=== PATIENT | male | born 1955 | race Caucasian/White ===

== ENCOUNTER 2017-04-30 22:51 | Inpatient (IN) | payer MEDICARE ==
[~2017-04-30 22:51] MED LIST: ASPI81TA82 PO; BENZ100 PO; CORE3.12 PO; GLIM4TAB PO; GLUCTAB PO; PLAV75TA OR; PRIN5TAB PO; ROSU40 PO
[2017-04-30 23:00] VITALS: BP 234/97; PULSE 101; RESP 20; TEMP 98; O2SAT 90
[2017-04-30 23:05] VITALS: PULSE 101; RESP 18; O2SAT 93
[2017-04-30] MEDS ORDERED: NITROGLYCERIN-D5W 50 MG/250 ML 250 ML IV PRN (23:15)
[2017-04-30] MEDS ORDERED: NITROGLYCERIN 0.4 MG SL 25 TABS/BTL SL ONE (23:15)
[2017-04-30] MEDS ORDERED: SODIUM CHLORIDE 0.9% FLUSH 10 ML FLUSH IVF PRN (23:15)
--- NOTE | 2017-04-30 23:20 | PD ---
HPI Chief Complaint: chest pain Time Seen by Provider: 23:06 Travel History International Travel<30 days: No Contact w/Intl Traveler<30days: No History of Present Illness HPI The patient is a 62 year old male who presents to the [facility] emergency department with a history of chest pain that began at approximate 9:30 PM. The patient reports that he was sitting down when it began. He had eaten approximately one hour prior to the onset. He denies having any indigestion currently, however 2 weeks ago he did have an episode of heartburn. The patient does report having a prior history of coronary artery disease with four- vessel bypass in 2005 and 3 stents placed since then, most recently 2 stents were placed in 2013. 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 He last had a stress test done approximately a year ago. He reports that the chest pain is in the center of his chest that is a pressure sensation. He reports that it makes him feel short of breath as he cannot take a deep breath because of the pressure. He reports the pain radiates into the anterior neck bilaterally. He denies having any nausea or vomiting. He denies having any diaphoresis. The patient arrives hypertensive. The patient reports that he has not taken his blood pressure medication today as he forgot. He reports that he did take his blood pressure medication yesterday. The patient's pain initially was a 9 out of 10 in severity and is now down to a 4 out of 10 in severity. In route to this facility by ambulance services, the patient received sublingual nitroglycerin 3 which is what he believes improved his pain level. The patient reports that he did take an adult aspirin prior to arrival. On review of systems otherwise, the patient denies having any recent fevers, cough, congestion, abdominal pain, vomiting, diarrhea, urinary symptoms, or neurologic symptoms. [facility] Past Medical History Narrative Medical The Patient's past medical history is significant for coronary artery disease status post four-vessel bypass in 2005 and 3 stents placed since then, 2 stents placed in 2013, history of hypertension, hyperlipidemia, acid reflux, diabetes mellitus. Hx Anticoagulant Therapy: Yes Arthritis: No Asthma: No Blood Disorders: No Heart Rhythm Problems: No Cancer: No Cardiovascular Problems: Yes (CAD, CABGX4, STENTS) High Cholesterol: Yes Chemotherapy: No Chest Pain: Yes Cirrhosis: No COPD: No Cerebrovascular Accident: No Diabetes: Yes Endocrine: Yes GERD: Yes Genitourinary: No Headaches: Yes Hepatitis: No Hiatal Hernia: No Hypertension: Yes Immune Disorder: No Musculoskeletal: Yes Neurologic: No Psychiatric: No Respiratory: No Myocardial Infarction: Yes Radiation Therapy: No Seizures: No Sickle Cell Disease: No Sleep Apnea: No Thyroid Disease: No Ulcer: No Past Surgical History Narrative Surgical The patient's past surgical history is significant for a hernia repair, coronary artery bypass grafting of 4 vessels in 2006. Abdominal Surgery: Yes (Hernia repair) AICD: No Appendectomy: Yes Cardiac Surgery: Yes (CABG X 4) Coronary Artery Bypass Graft: Yes Coronary Stent: Yes Ear Surgery: No Endocrine Surgery: No Eye Surgery: No Genitourinary Surgery: No Gynecologic Surgery: No Joint Replacement: No Oral Surgery: No Pacemaker: No Thoracic Surgery: No Social History Alcohol Use: No Tobacco Use: No Substance Use: No Allergies-Medications (Allergen,Severity, Reaction): Coded Allergies: atorvastatin (Unverified Allergy, Severe, MUSCLE ACHES, 04/30/17) oxycodone (Unverified Allergy, Mild, 04/30/17) Reported Meds & Prescriptions Reported Meds & Active Scripts Active Reported Lisinopril 5 Mg Tab 5 Mg PO DAILY Pravastatin 40 Mg Tab 40 Mg PO HS Aspirin 325 Mg Tab 325 Mg PO DAILY Clopidogrel (Clopidogrel Bisulfate) 75 Mg Tab 75 Mg PO DAILY Isosorbide Mononitrate ER (Isosorbide Mononitrate) 30 Mg Leslie 30 Mg PO DAILY Carvedilol 3.125 Mg Tab 3.125 Mg PO BID Glipizide 5 Mg Tab 5 Mg PO BIDAC Take 30 minutes before a meal Amlodipine (Amlodipine Besylate) 10 Mg Tab 10 Mg PO DAILY Metformin (Metformin HCl) 500 Mg Tab 500 Mg PO BIDPC Review of Systems Except as stated in HPI: all other systems reviewed are Neg General / Constitutional: No: Fever Eyes: No: Visual changes HENT: Positive: Neck Pain, No: Headaches, Neck Stiffness Cardiovascular: Positive: Chest Pain or Discomfort, No: Dyspnea on exertion Respiratory: Positive: Shortness of Breath, No: Cough Gastrointestinal: No: Nausea, Abdominal Pain Genitourinary: No: Dysuria Musculoskeletal: No: Pain Skin: No Rash Neurologic: No: Weakness, Focal Abnormalities, Change in Mentation, Slurred Speech, Sensory Disturbance Psychiatric: No: Depression Endocrine: No: Polydipsia Hematologic/Lymphatic: No: Easy Bruising Physical Exam Narrative General: The patient is a well-developed, nourished male, uncomfortable appearing on arrival, otherwise in no acute distress. Head and Neck exam: Head is normocephalic atraumatic. Eyes: EOMI, pupils are equal round and reactive to light. Nose: Midline septum with pink mucous membranes Mouth: Dentition unremarkable. Moist mucus membranes. Posterior oropharynx is not erythematous. No tonsillar hypertrophy. Uvula midline. Airway patent. Neck: No palpable lymphadenopathy. No nuchal rigidity. No thyromegaly. Cardiovascular: Sinus tachycardia in the low 100s with a 1/6 systolic murmur audible, best audible in the right second intercostal space. No pulse deficit to the extremities on simultaneous auscultation and palpation of his radial artery. Lungs: Clear to auscultation bilaterally. No wheezes, rhonchi, or rales. Abdomen: Soft, without tenderness to palpation in all 4 quadrants of the abdomen. No guarding, rebound, or rigidity. Normal bowel sounds are audible. No tenderness on palpation of McBurney's point. Negative Orr's sign. Extremities: No clubbing, cyanosis, or edema. 2+ pulses in all 4 extremities. No calf tenderness on palpation. Back: No costovertebral angle tenderness to palpation. Neurologic Exam: Grossly nonfocal. Skin Exam: No rash noted. Intact skin that is warm and dry. Data Data Last Documented VS Vital Signs Date Time Temp Pulse Resp B/P (MAP) Pulse Ox O2 Delivery O2 Flow Rate FiO2 05/01/17 00:00 88 16 161/79 (106) 97 Nasal Cannula 3.00 04/30/17 23:00 98.0 Orders Orders Electrocardiogram (04/30/17 23:06) B-Type Natriuretic Peptide (04/30/17 23:06) Ckmb (Isoenzyme) Profile (04/30/17 23:06) Complete Blood Count With Diff (04/30/17 23:06) Comprehensive Metabolic Panel (04/30/17 23:06) Magnesium (Mg) (04/30/17 23:06) Prothrombin Time / Inr (Pt) (04/30/17 23:06) Act Partial Throm Time (Ptt) (04/30/17 23:06) Troponin I (04/30/17 23:06) Lipase (04/30/17 23:06) Chest, Single Ap (04/30/17 23:06) Ecg Monitoring (04/30/17 23:06) Bilateral Bp Monitoring (04/30/17 23:06) Iv Access Insert/Monitor (04/30/17 23:06) Oximetry (04/30/17 23:06) Oxygen Administration (04/30/17 23:06) Sodium Chloride 0.9% Flush (Ns Flush) (04/30/17 23:15) Nitroglycerin Sl (Nitrostat Sl) (04/30/17 23:15) Nitroglycerin-D5w 50 Mg/250 Ml (Nitrogly (04/30/17 23:15) CKMB (04/30/17 23:15) CKMB% (04/30/17 23:15) Insulin Human Regular Inj (Novolin R Inj (05/01/17 00:30) Sodium Chlor 0.9% 1000 Ml Inj (Ns 1000 M (05/01/17 00:30) Blood Culture (05/01/17 00:22) Ceftriaxone Inj (Rocephin Inj) (05/01/17 00:30) Azithromycin Inj (Zithromax Inj) (05/01/17 00:30) Admit Order (Ed Use Only) (05/01/17 01:08) Labs Laboratory Tests Test 04/30/17 23:15 White Blood Count 7.7 TH/MM3 Red Blood Count 5.56 MIL/MM3 Hemoglobin 14.5 GM/DL Hematocrit 44.8 % Mean Corpuscular Volume 80.6 FL Mean Corpuscular Hemoglobin 26.1 PG Mean Corpuscular Hemoglobin Concent 32.4 % Red Cell Distribution Width 14.6 % Platelet Count 213 TH/MM3 Mean Platelet Volume 8.6 FL Neutrophils (%) (Auto) 60.8 % Lymphocytes (%) (Auto) 26.5 % Monocytes (%) (Auto) 9.0 % Eosinophils (%) (Auto) 2.6 % Basophils (%) (Auto) 1.1 % Neutrophils # (Auto) 4.7 TH/MM3 Lymphocytes # (Auto) 2.0 TH/MM3 Monocytes # (Auto) 0.7 TH/MM3 Eosinophils # (Auto) 0.2 TH/MM3 Basophils # (Auto) 0.1 TH/MM3 CBC Comment DIFF FINAL Differential Comment Prothrombin Time 9.8 SEC Prothromb Time International Ratio 1.0 RATIO Activated Partial Thromboplast Time 25.0 SEC Blood Urea Nitrogen 26 MG/DL Creatinine 1.28 MG/DL Random Glucose 419 MG/DL Total Protein 8.7 GM/DL Albumin 3.8 GM/DL Calcium Level 9.2 MG/DL Magnesium Level 2.1 MG/DL Alkaline Phosphatase 98 U/L Aspartate Amino Transf (AST/SGOT) 23 U/L Alanine Aminotransferase (ALT/SGPT) 31 U/L Total Bilirubin 0.3 MG/DL Sodium Level 137 MEQ/L Potassium Level 4.5 MEQ/L Chloride Level 102 MEQ/L Carbon Dioxide Level 24.8 MEQ/L Anion Gap 10 MEQ/L Estimat Glomerular Filtration Rate 57 ML/MIN Total Creatine Kinase 155 U/L Creatine Kinase MB 2.5 NG/ML Troponin I 0.04 NG/ML B-Type Natriuretic Peptide 118 PG/ML Lipase 211 U/L MDM Medical Decision Making Medical Screen Exam Complete: Yes Emergency Medical Condition: Yes Medical Record Reviewed: Yes Interpretation(s) Last Impressions Chest X-Ray 04/30/17 9933 Signed Impressions: Service Date/Time: Tuesday, April 30, 2017 23:22 - CONCLUSION: Left base pneumonia in the proper clinical setting. Followup 2 view chest x-ray recommended in a few weeks to confirm resolution. Nicho Burroughs MD Differential Diagnosis STEMI, versus unstable angina, versus acid reflux, versus aortic dissection Narrative Course During the course of the patients emergency department visit, the patients history, examination, and differential diagnosis were reviewed with the patient. The patient was placed on a optic fibre drawer with oximetry and frequent blood pressure monitoring. The patient had IV access obtained and blood work sent for analysis. The patient was placed on a optic fibre drawer with oximetry and blood pressure monitoring. An ECG was done on arrival. The patient's ECG reveals a sinus tachycardia with occasional premature ventricular complexes, heart rate of 101, QRS duration is 115 ms, QTc is 418 ms. The patient has T waves are inverted in lead 3 ST segment depression is noted in V4, V5. The patient was initially provided nitroglycerin sublingual 1, and a nitroglycerin drip will be started. The patient reports that he did take an adult aspirin prior to arrival. The patients laboratory studies were reviewed and remarkable for a CMP that shows a blood sugar of 419. The patient had a normal CO2, therefore DKA is not suspected. The patient was given regular insulin 10 units subcutaneously 1. The patient was also given a normal saline 500 mL bolus. The CBC shows a white count of 7.7, hemoglobin 14.5, platelets 213 with 9.0 monos, CMP is remarkable for BUN of 26, glucose 419, total protein 8.7, initial set of cardiac enzymes are within normal limits, BNP 118, lipase 211, PT 9.8, PTT 25.0 Radiology studies were reviewed and remarkable for a chest x-ray that shows an infiltrate in the left lower lung base. Blood cultures 2 were sent and the patient was given Rocephin 1 g IV, Zithromax 500 IV. The patient will be admitted to the hospital for symptoms of unstable angina, left lower lobe pneumonia, and uncontrolled hyperglycemia. The patients results were discussed with the patient, including the plan of care. I explained that further testing and/ or monitoring is indicated based on the patients history, examination, and/ or laboratory findings. Therefore, I recommended admission for additional evaluation. The patient expressed understanding and was agreeable with this plan. The patient was admitted to the hospital in guarded condition and sent to a bed under the care of the [facility]. Sepsis Criteria SIRS Criteria (2 or more): Heart rate over 90 Physician Communication Physician Communication The patient's case including history, pertinent physical examination findings, and laboratory studies were discussed with Dr. Agarwal. It was agreed that the patient would be admitted to the [facility] service. Diagnosis Primary Impression: Pneumonia Qualified Codes: J18.1 - Lobar pneumonia, unspecified organism Additional Impressions: Unstable angina Hyperglycemia Admitting Information Admitting Physician Requests: Admit Silvia Cruz MD Apr 30, 2017 23:20
[2017-04-30 23:28] VITALS: BP 174/70; PULSE 101; RESP 18; O2SAT 96
[2017-04-30 23:30] VITALS: BP 167/79; PULSE 99; RESP 16; O2SAT 97
--- NOTE | 2017-04-30 23:32 | RADRPT ---
EXAM DATE/TIME: 04/30/2017 23:22 [place] COMPARISON: No previous studies available for comparison. INDICATIONS : Chest pain MEDICAL HISTORY : None. SURGICAL HISTORY : None. ENCOUNTER: Initial ACUITY: 1 day PAIN SCORE: 8/10 LOCATION: Bilateral chest FINDINGS: Vague infiltrates in left lung base. Right lung clear. No pleural effusion or pneumothorax on either side. Heart size normal. Patient has had previous median sternotomy. CONCLUSION: Left base pneumonia in the proper clinical setting. Followup 2 view chest x-ray recommended in a few weeks to confirm resolution. Nicho Burroughs MD on April 30, 2017 at 23:29 Board Certified Radiologist. This report was verified electronically.
[2017-04-30 23:37] LABS: AUTOMATED NEUTROPHIL # 4.7 TH/MM3 (1.8-7.7); BASOPHIL # 0.1 TH/MM3 (0-0.2); BASOPHIL % 1.1 % (0.0-2.0); EOSINOPHIL # 0.2 TH/MM3 (0-0.4); EOSINOPHIL % 2.6 % (0.0-4.0); HEMATOCRIT 44.8 % (39.0-51.0); HEMOGLOBIN 14.5 GM/DL (13.0-17.0); LYMPH % 26.5 % (9.0-44.0); MEAN CELL VOLUME 80.6 FL (80.0-100.0); MEAN CORPUSCULAR HEMOGLOBIN 26.1 PG (27.0-34.0); MEAN CORPUSCULAR HGB CONC 32.4 % (32.0-36.0); MEAN PLATELET VOLUME 8.6 FL (7.0-11.0); MONOCYTE # 0.7 TH/MM3 (0-0.9); NEUT % 60.8 % (16.0-70.0); PLATELET COUNT 213 TH/MM3 (150-450); RED BLOOD COUNT 5.56 MIL/MM3 (4.50-5.90); RED CELL DISTRIBUTION WIDTH 14.6 % (11.6-17.2); WHITE BLOOD COUNT 7.7 TH/MM3 (4.0-11.0)
[2017-04-30 23:47] LABS: PROTHROMBIN TIME - PATIENT 9.8 SEC (9.8-11.6)
[2017-04-30 23:53] LABS: ALBUMIN 3.8 GM/DL (3.4-5.0); ALT (GPT) 31 U/L (12-78); AST (GOT) 23 U/L (15-37); BICARBONATE 24.8 MEQ/L (21.0-32.0); BLOOD UREA NITROGEN 26 MG/DL (7-18); CALCIUM 9.2 MG/DL (8.5-10.1); CHLORIDE 102 MEQ/L (98-107); CREATININE 1.28 MG/DL (0.60-1.30); GLOMERULAR FILTRATION RATE 57 ML/MIN (>89); LIPASE 211 U/L (73-393); MAGNESIUM 2.1 MG/DL (1.5-2.5); SODIUM (NA) 137 MEQ/L (136-145)
[2017-04-30 23:55] LABS: GLUCOSE,RANDOM 419 MG/DL (74-106)
[2017-04-30 23:56] LABS: ALKALINE PHOSPHATASE 98 U/L (45-117); TOTAL BILIRUBIN ADULT 0.3 MG/DL (0.2-1.0); TOTAL PROTEIN 8.7 GM/DL (6.4-8.2); TROPONIN I 0.04 NG/ML (0.02-0.05)
[2017-05-01] VITALS (9 sets, daily range): BP systolic 112–161; BP diastolic 60–83; PULSE 69–88; RESP 16–18; TEMP 97.7–98.4; O2SAT 96–99
[2017-05-01] MEDS ORDERED: AMLO10TA2 PO (00:11)
[2017-05-01] MEDS ORDERED: PRAV40TA2 PO (00:11)
[2017-05-01] MEDS ORDERED: METF500T PO (00:11)
[2017-05-01] MEDS ORDERED: CARV3.12 PO (00:11)
[2017-05-01] MEDS ORDERED: ISOS30TA3 PO (00:11)
[2017-05-01] MEDS ORDERED: GLIP5TAB8 PO (00:11)
[2017-05-01] MEDS ORDERED: ASPI-183 PO (00:11)
[2017-05-01] MEDS ORDERED: CLOP75TA PO (00:11)
[2017-05-01] MEDS ORDERED: LISI-519 PO (00:11)
[2017-05-01] MEDS ORDERED: INSULIN HUMAN REGULAR 1,000 UNITS/10 ML VIAL SQ ONE (00:30)
[2017-05-01] MEDS ORDERED: AZITHROMYCIN INJ 500 MG in SODIUM CHLOR 0.9% 250 ML INJ 250 ML IV ONE (00:30)
[2017-05-01] MEDS ORDERED: cefTRIAXone INJ 1,000 MG in SODIUM CHLORIDE 0.9% INJ 100 ML IV ONE (00:30)
[2017-05-01] MEDS ORDERED: SODIUM CHLOR 0.9% 1000 ML INJ 1,000 ML IV ONE (00:30)
[2017-05-01] MEDS ORDERED: NITROGLYCERIN 2% OINT 1 GM PACKET TOPICAL PRN (01:15)
[2017-05-01] MEDS ORDERED: MORPHINE SULFATE 2 MG/ML INJ IV PUSH PRN (01:15)
[2017-05-01] MEDS ORDERED: BISACODYL 10 MG SUPP RECTAL PRN (01:15)
[2017-05-01] MEDS ORDERED: GLUCAGON 1 MG/ML VIAL OTHER PRN (01:15)
[2017-05-01] MEDS ORDERED: SENNOSIDES 8.6 MG TAB PO PRN (01:15)
[2017-05-01] MEDS ORDERED: MAGNESIUM HYDROXIDE SUSP 30 ML CUP PO PRN (01:15)
[2017-05-01] MEDS ORDERED: RESP: ALBUTEROL 2.5 MG/IPRATROPIUM 0.5 MG NEB (PRN) NEB (01:15)
[2017-05-01] MEDS ORDERED: DEXTROSE 50% IN WATER 50 ML VIAL(D50) IV PUSH PRN (01:15)
[2017-05-01] MEDS ORDERED: LACTULOSE SYRUP 20 GM/30 ML CUP PO PRN (01:15)
[2017-05-01] MEDS ORDERED: SODIUM CHLORIDE 0.9% FLUSH 10 ML FLUSH IV FLUSH PRN (01:15)
[2017-05-01] MEDS ORDERED: ONDANSETRON HCL 4 MG/2 ML VIAL IVP PRN (01:15)
[2017-05-01] MEDS ORDERED: ACETAMINOPHEN 325 MG TAB PO PRN (01:15)
[2017-05-01] MEDS ORDERED: ENOXAPARIN SODIUM 40 MG/0.4 ML SYRINGE SQ ONE (02:00)
--- NOTE | 2017-05-01 03:06 | HHI.HP ---
HPI Service [facility] Primary Care Physician Joe Merritt MD Admission Diagnosis Unstable angina, LLL pneumonia, hyperglycemia Diagnoses: (1) Chest pain Diagnosis: Principal (2) PNA (pneumonia) Diagnosis: Principal (3) HTN (hypertension) Diagnosis: Principal (4) DM (diabetes mellitus) Diagnosis: Principal Travel History International Travel<30 Days: No Contact w/Intl Traveler <30 Da: No Traveled to Known Affected Are: No History of Present Illness This is a 62-year-old male with PMH of HTN, CAD s/p CABG, Hyperlipidemia and DM who presented to the ER w/ complaints of chest pain starting few hours prior to arrival. Pain is constant, severe, 9/10, pressure-like w/ radiation to left neck. Reports associated SOB. Previous h/o similar symptoms w/ prior MS. S/p NTG w/ significant relief. Follows w/ Dr. Cloud as outpatient, last Stress approx 1yr ago normal per his report. On arrival, BP 174/70, HR 101, O2 sat 96 % on 3L NC, Afebrile. CBC unremarkable. Chemistry essentially unremarkable except for BS 419. Troponin 0.04. INR 1.0. CXR with left base pneumonia. S/ p Rocephin/Zithro and started on Heparin gtt in ER. Currently chest pain free. Review of Systems Except as stated in HPI: all other systems reviewed are Neg ROS: 14 point review of systems otherwise negative. Past Family Social History Past Medical History PMH: HTN, CAD s/p CABG, Hyperlipidemia and DM Past Surgical History PAST SURGICAL HISTORY: Hernia Repair, CABG, Appendectomy, Cardiac Stent Allergies: Coded Allergies: atorvastatin (Unverified Allergy, Severe, MUSCLE ACHES, 04/30/17) oxycodone (Unverified Allergy, Mild, 04/30/17) Family History PAST FAMILY HISTORY: Reviewed. No h/o DM or CAD Social History PAST SOCIAL HISTORY: Negative for alcohol, tobacco or drugs. Physical Exam Vital Signs Vital Signs Date Time Temp Pulse Resp B/P (MAP) Pulse Ox O2 Delivery O2 Flow Rate FiO2 05/01/17 02:08 87 18 155/80 (105) 98 Nasal Cannula 3.00 05/01/17 01:45 98 Nasal Cannula 3.00 05/01/17 00:00 88 16 161/79 (106) 97 Nasal Cannula 3.00 04/30/17 23:48 99 164/75 04/30/17 23:30 99 16 167/79 (108) 97 Nasal Cannula 3.00 04/30/17 23:28 101 18 174/70 (104) 96 Nasal Cannula 3.00 04/30/17 23:05 101 18 93 Nasal Cannula 3.00 04/30/17 23:05 102 20 94 Nasal Cannula 3.00 04/30/17 23:05 96 Nasal Cannula 3.00 04/30/17 23:00 98.0 101 20 234/97 (142) 90 Physical Exam PE: GENERAL: Middle-aged male in no acute distress. HEENT: PERRLA, EOMI. No scleral icterus or conjunctival pallor. No lid lag or facial droop. CARDIOVASCULAR: Regular rate and rhythm. No obvious murmurs to auscultation. No chest tenderness to palpation. RESPIRATORY: No obvious rhonchi or wheezing. Clear to auscultation. Breath sounds equal bilaterally. GASTROINTESTINAL: Abdomen soft, non-tender, nondistended. BS normal. MUSCULOSKELETAL: Extremities without clubbing, cyanosis, or edema. No obvious deformities. NEUROLOGICAL: Awake, alert and oriented x4. No focal neurologic deficits. Moving both upper and lower extremities spontaneously. Laboratory Laboratory Tests Test 04/30/17 23:15 White Blood Count 7.7 Red Blood Count 5.56 Hemoglobin 14.5 Hematocrit 44.8 Mean Corpuscular Volume 80.6 Mean Corpuscular Hemoglobin 26.1 Mean Corpuscular Hemoglobin Concent 32.4 Red Cell Distribution Width 14.6 Platelet Count 213 Mean Platelet Volume 8.6 Neutrophils (%) (Auto) 60.8 Lymphocytes (%) (Auto) 26.5 Monocytes (%) (Auto) 9.0 Eosinophils (%) (Auto) 2.6 Basophils (%) (Auto) 1.1 Neutrophils # (Auto) 4.7 Lymphocytes # (Auto) 2.0 Monocytes # (Auto) 0.7 Eosinophils # (Auto) 0.2 Basophils # (Auto) 0.1 CBC Comment DIFF FINAL Differential Comment Prothrombin Time 9.8 Prothromb Time International Ratio 1.0 Activated Partial Thromboplast Time 25.0 Blood Urea Nitrogen 26 Creatinine 1.28 Random Glucose 419 Total Protein 8.7 Albumin 3.8 Calcium Level 9.2 Magnesium Level 2.1 Alkaline Phosphatase 98 Aspartate Amino Transf (AST/SGOT) 23 Alanine Aminotransferase (ALT/SGPT) 31 Total Bilirubin 0.3 Sodium Level 137 Potassium Level 4.5 Chloride Level 102 Carbon Dioxide Level 24.8 Anion Gap 10 Estimat Glomerular Filtration Rate 57 Total Creatine Kinase 155 Creatine Kinase MB 2.5 Troponin I 0.04 B-Type Natriuretic Peptide 118 Lipase 211 Date/Time Source Procedure Growth Status 05/01/17 01:15 Blood Peripheral Aerobic Blood Culture Pending Received 05/01/17 01:15 Blood Peripheral Anaerobic Blood Culture Pending Received Result Diagram: 04/30/17231404/30/172314 Caprinjameel VTE Risk Assessment Caprinjameel VTE Risk Assessment: Mod/High Risk (score >= 2) Caprini Risk Assessment Model Point Value = 1 Point Value = 2 Point Value = 3 Point Value = 5 Age 41-60 Minor surgery BMI > 25 kg/m2 Swollen legs Varicose veins or History of unexplained or recurrent spontaneous Oral contraceptives or hormone replacement Sepsis (< 1 month) Serious lung disease, including pneumonia (< 1 month) Abnormal pulmonary function Acute myocardial infarction Congestive heart failure (< 1 month) History of inflammatory bowel disease Medical patient at bed rest Age 61-74 Arthroscopic surgery Major open surgery (> 45 min) Laparoscopic surgery (> 45 min) Malignancy Confined to bed (> 72 hours) Immobilizing plaster cast Central venous access Age >= 75 History of VTE Family history of VTE Factor V Leiden Prothrombin [id number] Lupus anticoagulant Anticardiolipin antibodies Elevated serum homocysteine Heparin-induced thrombocytopenia Other congenital or acquired thrombophilia Stroke (< 1 month) Elective arthroplasty Hip, pelvis, or leg fracture Acute spinal cord injury (< 1 month) Prophylaxis Regimen Total Risk Factor Score Risk Level Prophylaxis Regimen 0-1 Low Early ambulation 2 Moderate Order ONE of the following: *Sequential Compression Device (SCD) *Heparin 5000 units SQ BID 3-4 Higher Order ONE of the following medications: *Heparin 5000 units SQ TID *Enoxaparin/Lovenox 40 mg SQ daily (WT < 150 kg, CrCl > 30 mL/min) *Enoxaparin/Lovenox 30 mg SQ daily (WT < 150 kg, CrCl > 10-29 mL/min) *Enoxaparin/Lovenox 30 mg SQ BID (WT < 150 kg, CrCl > 30 mL/min) AND/OR *Sequential Compression Device (SCD) 5 or more Highest Order ONE of the following medications: *Heparin 5000 units SQ TID (Preferred with Epidurals) *Enoxaparin/Lovenox 40 mg SQ daily (WT < 150 kg, CrCl > 30 mL/min) *Enoxaparin/Lovenox 30 mg SQ daily (WT < 150 kg, CrCl > 10-29 mL/min) *Enoxaparin/Lovenox 30 mg SQ BID (WT < 150 kg, CrCl > 30 mL/min) AND *Sequential Compression Device (SCD) Assessment and Plan Problem List: (1) Chest pain ICD Code: R07.9 - Chest pain, unspecified (2) HTN (hypertension) ICD Code: I10 - Essential (primary) hypertension (3) PNA (pneumonia) ICD Code: J18.9 - Pneumonia, unspecified organism (4) DM (diabetes mellitus) ICD Code: E11.9 - Type 2 diabetes mellitus without complications Assessment and Plan A/P: 1. Chest Pain: acute onset of substernal chest pain w/ radiation to neck, s/p NTG w/ relief, concern for ACS. Initial trop negative, EKG w/ no acute findings. Admit for further cardiac evaluation in light of strong history of cardiac disease. Check serial enzymes. ASA, Plavix, resume home medications. NTG/Morphine prn. Follows w/ Dr. Cloud as outpatient, will consult as needed. 2. PNA: CXR w/ LLL PNA, s/p Rocephin/Zithro in ER, will continue w/ IV Abx. 3. HTN: Uncontrolled. BP 150's, likely compounded by chest pain. Resume home medications, monitor BP closely. 4. DM: Sliding scale w/ Accu-Cheks. Hold Metformin for possible cardiac intervention. 5. DVT Prophylaxis: Lovenox 6. Social work for d/c planning as needed. 7. Previous records, labs, imaging reviewed. Case discussed w/ ER physician at length. Radha Agarwal MD May 01, 2017 03:06
[2017-05-01] MEDS: glipiZIDE 5 MG TAB PO SCH ×2 (06:36→18:04)
[2017-05-01] MEDS: INSULIN ASPART SUPPLEMENTAL SCALE SQ SCH ×4 (08:00→21:00)
[2017-05-01] MEDS: CLOPIDOGREL 75 MG TAB PO SCH (08:53)
[2017-05-01] MEDS: ASPIRIN 325 MG TAB PO SCH (08:53)
[2017-05-01] MEDS: ISOSORBIDE MONONITRATE 30 MG TAB PO SCH (08:53)
[2017-05-01] MEDS: LISINOPRIL 5 MG TAB PO SCH (08:53)
[2017-05-01] MEDS: CARVEDILOL 3.125 MG TAB PO SCH ×2 (08:53→20:47)
[2017-05-01] MEDS: DOCUSATE SODIUM 50 MG/SENNA 8.6 MG TAB PO SCH ×2 (08:55→20:47)
[2017-05-01] MEDS: SODIUM CHLORIDE 0.9% FLUSH 10 ML FLUSH IV FLUSH SCH ×2 (09:00→20:48)
--- NOTE | 2017-05-01 13:05 | EKG ---
Date Performed: 04/30/2017 Time Performed: 23:12:20 PTAGE: 62 years EKG: SINUS TACHYCARDIA WITH OCCASIONAL VENTRICULAR PREMATURE COMPLEXES SEPTAL MYOCARDIAL INFARCT ION NON-SPECIFIC ST/T WAVE CHANGES NOTED ABNORMAL ECG PREVIOUS TRACING : 09/19/2011 05.32 Compared to the previous tracing, previously evolution of S T/T wave changes no longer noted DOCTOR: Ivan Andrade Interpretating Date/Time 05/01/2017 13:04:38
[2017-05-01] MEDS ORDERED: NITROGLYCERIN 0.4 MG/HR PATCH T-DERMAL SCH (16:15)
--- NOTE | 2017-05-01 17:52 | MB ---
cc: JEANNE DAVIS M.D. DATE OF CONSULTATION 05/01/2017 REASON FOR CONSULTATION The patient is a 62-year-old male with a history of coronary artery disease, myocardial infarction in the past, coronary artery bypass surgery 2005, multiple stents after that, the last was approximately 3 years ago, a patient of Dr. Cloud. He did according to the patient stent approximately three years ago. The patient has also a history of diabetes, hypertension, hyperlipidemia presented with an episode of chest pain after a long day of physical work. Initial troponin was okay then follow up on that started to rise to 1.6, it came down to 1.3 level. No more chest pain after he came to the hospital and we started him nitroglycerine, off completely nitroglycerine now. Completely pain free. Had nausea and some shortness of breath at the same time. Was fully active before that with no difficulty in the last three years since the last stenting. No edema. No claudication. No syncope or presyncope. No orthopnea. No paroxysmal nocturnal dyspnea. PAST MEDICAL HISTORY As above. SOCIAL HISTORY No alcohol. No drugs. No tobacco. PAST SURGICAL HISTORY 1. Coronary artery bypass graft. 2. He has had quadruple bypass. 3. Appendectomy. 4. Hernia repair. ALLERGIES ATORVASTATIN AND OXYCODONE. IT IS NOT CLEAR EXACTLY WHAT THEY CAUSE FOR HIM. FAMILY HISTORY Noncontributory. REVIEW OF SYSTEMS Essentially as above. MEDICATIONS See the chart for details. PHYSICAL EXAMINATION GENERAL: Alert and oriented, cooperative. Not in any acute distress. VITAL SIGNS: Blood pressure 150/80, pulse in the 70s. . Equal bilateral respirations 16. Afebrile. HEENT: Unremarkable. HEART: S1-S2. No murmur. No gallops. No rubs. LUNGS: Clear to auscultation and percussion. ABDOMEN: No organomegaly. No masses. EXTREMITIES: Lower extremities no edema. Pulses grossly intact. EKG sinus rhythm and septal infarction age undetermined. Cardiac enzymes as mentioned above. IMAGING Chest x-ray left base pneumonia in a clinical setting according to the report. He is awaiting IV Zithromax here in the hospital. Carvedilol, clopidogrel, lisinopril, Glipizide. He is already on aspirin also. I will add Nitro paste. The patient will probably need a heart catheterization and probably we might wait a day or so until pneumonia is better and resolving. Dr. Cloud will follow up accordingly with that. Thank you for this consultation. MD MUKESH Taveras/KK /3:56 PM /5:24 PM
[2017-05-01] MEDS: PRAVASTATIN SOD 40 MG TAB PO SCH (20:47)
[2017-05-01] MEDS: cefTRIAXone INJ 1,000 MG in SODIUM CHLORIDE 0.9% INJ 100 ML IV SCH (23:00)
[2017-05-01] MEDS: AZITHROMYCIN INJ 500 MG in SODIUM CHLOR 0.9% 250 ML INJ 250 ML IV SCH (23:55)
[2017-05-02] VITALS (12 sets, daily range): BP systolic 110–148; BP diastolic 64–81; PULSE 63–84; RESP 14–20; TEMP 98–98.6; O2SAT 95–98
[2017-05-02] MEDS: glipiZIDE 5 MG TAB PO SCH ×2 (06:23→16:47)
[2017-05-02 06:43] LABS: AUTOMATED NEUTROPHIL # 4.4 TH/MM3 (1.8-7.7); BASOPHIL # 0.1 TH/MM3 (0-0.2); BASOPHIL % 1.1 % (0.0-2.0); EOSINOPHIL # 0.3 TH/MM3 (0-0.4); EOSINOPHIL % 3.4 % (0.0-4.0); HEMATOCRIT 37.4 % (39.0-51.0); HEMOGLOBIN 12.6 GM/DL (13.0-17.0); LYMPH % 30.2 % (9.0-44.0); LYMPHOCYTE # 2.4 TH/MM3 (1.0-4.8); MEAN CELL VOLUME 79.7 FL (80.0-100.0); MEAN CORPUSCULAR HEMOGLOBIN 26.8 PG (27.0-34.0); MEAN CORPUSCULAR HGB CONC 33.6 % (32.0-36.0); MEAN PLATELET VOLUME 8.3 FL (7.0-11.0); MONOCYTE # 0.8 TH/MM3 (0-0.9); NEUT % 55.3 % (16.0-70.0); PLATELET COUNT 172 TH/MM3 (150-450); RED BLOOD COUNT 4.69 MIL/MM3 (4.50-5.90); RED CELL DISTRIBUTION WIDTH 14.3 % (11.6-17.2)
[2017-05-02 07:18] LABS: ALKALINE PHOSPHATASE 69 U/L (45-117); ALT (GPT) 21 U/L (12-78); AST (GOT) 17 U/L (15-37); BICARBONATE 23.4 MEQ/L (21.0-32.0); BLOOD UREA NITROGEN 22 MG/DL (7-18); CALCIUM 8.3 MG/DL (8.5-10.1); CHLORIDE 109 MEQ/L (98-107); CREATININE 0.81 MG/DL (0.60-1.30); GLOMERULAR FILTRATION RATE 97 ML/MIN (>89); GLUCOSE,RANDOM 152 MG/DL (74-106); SODIUM (NA) 140 MEQ/L (136-145); TOTAL BILIRUBIN ADULT 0.3 MG/DL (0.2-1.0); TOTAL PROTEIN 6.7 GM/DL (6.4-8.2)
[2017-05-02] MEDS: CLOPIDOGREL 75 MG TAB PO SCH (07:42)
[2017-05-02] MEDS: CARVEDILOL 3.125 MG TAB PO SCH ×2 (07:42→21:29)
[2017-05-02] MEDS: ASPIRIN 325 MG TAB PO SCH (07:42)
[2017-05-02] MEDS: ENOXAPARIN SODIUM 40 MG/0.4 ML SYRINGE SQ SCH (07:42)
[2017-05-02] MEDS: LISINOPRIL 5 MG TAB PO SCH (07:43)
[2017-05-02] MEDS: ISOSORBIDE MONONITRATE 30 MG TAB PO SCH (07:43)
[2017-05-02] MEDS: DOCUSATE SODIUM 50 MG/SENNA 8.6 MG TAB PO SCH ×2 (07:45→21:00)
[2017-05-02] MEDS: SODIUM CHLORIDE 0.9% FLUSH 10 ML FLUSH IV FLUSH SCH ×2 (07:45→21:29)
[2017-05-02] MEDS: INSULIN ASPART SUPPLEMENTAL SCALE SQ SCH ×4 (07:51→21:42)
--- NOTE | 2017-05-02 12:20 | EKG ---
Date Performed: 05/02/2017 Time Performed: 11:11:24 PTAGE: 62 years EKG: SINUS BRADYCARDIA LOW QRS VOLTAGE IN PRECORDIAL LEADS NONSPECIFIC ST & T-WAVE ABNORMALITY p ossible Inferior myocardial infarction ABNORMAL ECG Compared to prior electrocardiogram, Rate has dec reased and nonspecific ST T wave changes are slightly more marked. PREVIOUS TRACING : 04/30/2017 23.12 DOCTOR: Hollis Husain Interpretating Date/Time 05/02/2017 12:18:12
--- NOTE | 2017-05-02 14:22 | PD.CARD.PN ---
Subjective Subjective Remarks feeling better Objective Medications Current Medications Medications (Trade) Dose Ordered Sig/Jenni Route Start Time Stop Time Status Last Admin Nitroglycerin/ Dextrose 250 ml @ 1.5 mls/hr TITRATE PRN IV 04/30/17 23:15 04/30/17 23:48 (D50w (Vial) Inj) 50 ml UNSCH PRN IV PUSH 05/01/17 01:15 (Glucagon Inj) 1 mg UNSCH PRN OTHER 05/01/17 01:15 (NovoLOG SUPPLEMENTAL SCALE) 1 ACHS SLIDING SCALE SQ 05/01/17 08:00 05/02/17 13:04 Ceftriaxone Sodium 1000 mg/ Sodium Chloride 100 ml @ 200 mls/hr Q24H IV 05/01/17 23:00 05/01/17 23:00 Azithromycin 500 mg/Sodium Chloride 250 ml @ 250 mls/hr Q24H IV 05/02/17 00:00 05/01/17 23:55 (Duoneb Neb) 1 ampule Q4HR NEB PRN NEB 05/01/17 01:15 (Nitroglycerin 2% Oint) 0.5 inch Q6HR PRN TOPICAL 05/01/17 01:15 (NS Flush) 2 ml UNSCH PRN IV FLUSH 05/01/17 01:15 (NS Flush) 2 ml BID IV FLUSH 05/01/17 09:00 05/02/17 07:45 (Zofran Inj) 4 mg Q6H PRN IVP 05/01/17 01:15 (Lovenox Inj) 40 mg Q24H SQ 05/02/17 09:00 05/02/17 07:42 (Tylenol) 650 mg Q6H PRN PO 05/01/17 01:15 (Morphine Inj) 2 mg Q3H PRN IV PUSH 05/01/17 01:15 (Jackie-Colace) 1 tab BID PO 05/01/17 09:00 05/01/17 20:47 (Milk Of Magnesia Liq) 30 ml Q12H PRN PO 05/01/17 01:15 (Senokot) 17.2 mg Q12H PRN PO 05/01/17 01:15 (Dulcolax Supp) 10 mg DAILY PRN RECTAL 05/01/17 01:15 (Lactulose Liq) 30 ml DAILY PRN PO 05/01/17 01:15 (Norvasc) 10 mg DAILY PO 05/01/17 09:00 05/02/17 07:42 (Aspirin) 325 mg DAILY PO 05/01/17 09:00 05/02/17 07:42 (Coreg) 3.125 mg BID PO 05/01/17 09:00 05/02/17 07:42 (Plavix) 75 mg DAILY PO 05/01/17 09:00 05/02/17 07:42 (Glucotrol) 5 mg BIDAC PO 05/01/17 07:00 05/02/17 06:23 (Imdur) 30 mg DAILY PO 05/01/17 09:00 05/02/17 07:43 (Prinivil) 5 mg DAILY PO 05/01/17 09:00 05/02/17 07:43 (Pravachol) 40 mg HS PO 05/01/17 21:00 05/01/17 20:47 Vital Signs / I&O Vital Signs Date Time Temp Pulse Resp B/P (MAP) Pulse Ox O2 Delivery O2 Flow Rate FiO2 05/02/17 12:59 98.6 75 18 125/66 (85) 95 05/02/17 08:01 81 05/02/17 07:40 98.1 68 20 132/81 (98) 96 05/02/17 03:58 98.0 63 14 110/64 (79) 98 05/01/17 20:00 98.2 76 16 125/74 (91) 96 05/01/17 16:50 98.4 70 18 112/72 (85) 99 I/O 05/01/17 05/01/17 05/01/17 05/02/17 05/02/17 05/02/17 06:59 14:59 22:59 06:59 14:59 22:59 Intake Total 1680 ml 350 ml Balance 1680 ml 350 ml Intake Oral 1680 ml IV Total 350 ml # Voids 6 3 # Bowel Movements 0 Physical Exam ehart s1s2 lung clear abdomen and ext free Laboratory Laboratory Tests Test 05/01/17 14:52 05/02/17 06:23 05/02/17 06:25 Troponin I 1.34 NG/ML White Blood Count 8.0 TH/MM3 Red Blood Count 4.69 MIL/MM3 Hemoglobin 12.6 GM/DL Hematocrit 37.4 % Mean Corpuscular Volume 79.7 FL Mean Corpuscular Hemoglobin 26.8 PG Mean Corpuscular Hemoglobin Concent 33.6 % Red Cell Distribution Width 14.3 % Platelet Count 172 TH/MM3 Mean Platelet Volume 8.3 FL Neutrophils (%) (Auto) 55.3 % Lymphocytes (%) (Auto) 30.2 % Monocytes (%) (Auto) 10.0 % Eosinophils (%) (Auto) 3.4 % Basophils (%) (Auto) 1.1 % Neutrophils # (Auto) 4.4 TH/MM3 Lymphocytes # (Auto) 2.4 TH/MM3 Monocytes # (Auto) 0.8 TH/MM3 Eosinophils # (Auto) 0.3 TH/MM3 Basophils # (Auto) 0.1 TH/MM3 CBC Comment DIFF FINAL Differential Comment Blood Urea Nitrogen 22 MG/DL Creatinine 0.81 MG/DL Random Glucose 152 MG/DL Total Protein 6.7 GM/DL Albumin 3.0 GM/DL Calcium Level 8.3 MG/DL Alkaline Phosphatase 69 U/L Aspartate Amino Transf (AST/SGOT) 17 U/L Alanine Aminotransferase (ALT/SGPT) 21 U/L Total Bilirubin 0.3 MG/DL Sodium Level 140 MEQ/L Potassium Level 4.2 MEQ/L Chloride Level 109 MEQ/L Carbon Dioxide Level 23.4 MEQ/L Anion Gap 8 MEQ/L Estimat Glomerular Filtration Rate 97 ML/MIN Assessment and Plan Assessment and Plan discussed in detail with Dr Cloud he is planning to do heart cath on 05-04-2017 am ecg stable no Erika Smyth MD May 02, 2017 14:22
--- NOTE | 2017-05-02 15:30 | HHI.PR ---
Subjective Remarks Pt is resting comfortably, he is free from chest pain since admission. He is looking forward to his heart catheterization. He has no complaints. Objective Vitals Vital Signs Date Time Temp Pulse Resp B/P (MAP) Pulse Ox O2 Delivery O2 Flow Rate FiO2 05/02/17 12:59 98.6 75 18 125/66 (85) 95 05/02/17 08:01 81 05/02/17 07:40 98.1 68 20 132/81 (98) 96 05/02/17 03:58 98.0 63 14 110/64 (79) 98 05/01/17 20:00 98.2 76 16 125/74 (91) 96 05/01/17 16:50 98.4 70 18 112/72 (85) 99 I/O 05/01/17 05/01/17 05/01/17 05/02/17 05/02/17 05/02/17 07:00 15:00 23:00 07:00 15:00 23:00 Intake Total 1680 ml 350 ml Balance 1680 ml 350 ml Intake Oral 1680 ml IV Total 350 ml # Voids 6 3 # Bowel Movements 0 Result Diagram: 05/02/17 0623 05/02/17 0625 Objective Remarks GENERAL: Well-nourished, well-developed patient. SKIN: Warm and dry. HEAD: Normocephalic. EYES: No scleral icterus. No injection or drainage. NECK: Supple, trachea midline. No JVD or lymphadenopathy. CARDIOVASCULAR: Regular rate and rhythm without murmurs, gallops, or rubs. RESPIRATORY: Breath sounds equal bilaterally. No accessory muscle use. GASTROINTESTINAL: Abdomen soft, non-tender, nondistended. MUSCULOSKELETAL: No cyanosis, or edema. BACK: Nontender without obvious deformity. No CVA tenderness. EXTREMITIES: no edema A/P Problem List: (1) Chest pain ICD Code: R07.9 - Chest pain, unspecified (2) HTN (hypertension) ICD Code: I10 - Essential (primary) hypertension (3) PNA (pneumonia) ICD Code: J18.9 - Pneumonia, unspecified organism (4) DM (diabetes mellitus) ICD Code: E11.9 - Type 2 diabetes mellitus without complications Assessment and Plan NSTEMI Elevated Troponin without EKG changes Cardiology is consulted, medical laboratory technical officer scheduled for Tuesday Currently chest pain free since ER Pneumonia "Vague infiltrates" on CXR, no WBC change, no fever, no cough Empiric coverage with Rocephin and Azithromycin Type 2 Diabetes Sliding scale insulin coverage with accuchecks Diabetic Diet Hypertension Stable DVT Prophylaxis Gab Buck MD May 02, 2017 15:30
[2017-05-02] MEDS: PRAVASTATIN SOD 40 MG TAB PO SCH (21:29)
[2017-05-02] MEDS: cefTRIAXone INJ 1,000 MG in SODIUM CHLORIDE 0.9% INJ 100 ML IV SCH (22:58)
[2017-05-02] MEDS: AZITHROMYCIN INJ 500 MG in SODIUM CHLOR 0.9% 250 ML INJ 250 ML IV SCH (23:58)
[2017-05-03] VITALS (12 sets, daily range): BP systolic 120–140; BP diastolic 65–87; PULSE 62–78; RESP 14–18; TEMP 97.3–98.6; O2SAT 94–97
[2017-05-03] MEDS: glipiZIDE 5 MG TAB PO SCH ×2 (06:11→16:03)
[2017-05-03] MEDS: SODIUM CHLORIDE 0.9% FLUSH 10 ML FLUSH IV FLUSH SCH ×2 (08:29→20:37)
[2017-05-03] MEDS: INSULIN ASPART SUPPLEMENTAL SCALE SQ SCH ×4 (08:29→20:43)
[2017-05-03] MEDS: DOCUSATE SODIUM 50 MG/SENNA 8.6 MG TAB PO SCH ×2 (08:30→20:37)
[2017-05-03] MEDS: ASPIRIN 325 MG TAB PO SCH (08:30)
[2017-05-03] MEDS: ISOSORBIDE MONONITRATE 30 MG TAB PO SCH (08:30)
[2017-05-03] MEDS: CARVEDILOL 3.125 MG TAB PO SCH ×2 (08:30→20:37)
[2017-05-03] MEDS: LISINOPRIL 5 MG TAB PO SCH (08:31)
[2017-05-03] MEDS: ENOXAPARIN SODIUM 40 MG/0.4 ML SYRINGE SQ SCH (08:31)
[2017-05-03] MEDS: CLOPIDOGREL 75 MG TAB PO SCH (08:31)
[2017-05-03] MEDS ORDERED: ZOLPIDEM TARTRATE 5 MG TAB PO PRN (10:30)
--- NOTE | 2017-05-03 18:28 | HHI.PR ---
Subjective Remarks Patient is remaining positive despite the scheduling delay with his heart cath. Today he requests a shower. Objective Vitals Vital Signs Date Time Temp Pulse Resp B/P (MAP) Pulse Ox O2 Delivery O2 Flow Rate FiO2 05/03/17 16:07 98.6 69 16 124/65 (84) 96 05/03/17 12:15 97.6 62 16 129/72 (91) 05/03/17 08:18 97.9 68 16 140/87 (104) 94 05/03/17 03:00 69 05/03/17 02:38 98.3 76 14 136/80 (98) 96 05/03/17 02:00 70 05/03/17 01:00 74 05/03/17 00:05 97.3 78 14 126/69 (88) 96 05/03/17 00:00 75 05/02/17 23:00 82 05/02/17 22:00 76 05/02/17 21:00 84 05/02/17 21:00 98.6 80 18 148/81 (103) 95 05/02/17 20:00 74 05/02/17 19:00 74 I/O 05/02/17 05/02/17 05/02/17 05/03/17 05/03/17 05/03/17 07:00 15:00 23:00 07:00 15:00 23:00 Intake Total 350 ml 460 ml 350 ml 480 ml 960 ml Balance 350 ml 460 ml 350 ml 480 ml 960 ml Intake Oral 460 ml 480 ml 960 ml IV Total 350 ml 350 ml # Voids 3 4 2 3 # Bowel Movements 0 2 0 1 Result Diagram: 05/02/17 0623 05/02/17 0625 Objective Remarks GENERAL: Well-nourished, well-developed patient. SKIN: Warm and dry. HEAD: Normocephalic. EYES: No scleral icterus. No injection or drainage. NECK: Supple, trachea midline. No JVD or lymphadenopathy. CARDIOVASCULAR: Regular rate and rhythm without murmurs, gallops, or rubs. RESPIRATORY: Breath sounds equal bilaterally. No accessory muscle use. GASTROINTESTINAL: Abdomen soft, non-tender, nondistended. MUSCULOSKELETAL: No cyanosis, or edema. BACK: Nontender without obvious deformity. No CVA tenderness. EXTREMITIES: no edema A/P Problem List: (1) Chest pain ICD Code: R07.9 - Chest pain, unspecified (2) HTN (hypertension) ICD Code: I10 - Essential (primary) hypertension (3) PNA (pneumonia) ICD Code: J18.9 - Pneumonia, unspecified organism (4) DM (diabetes mellitus) ICD Code: E11.9 - Type 2 diabetes mellitus without complications Assessment and Plan NSTEMI Elevated Troponin without EKG changes Cardiology is consulted, bed laborer scheduled for Tuesday morning Remaining chest pain free Pneumonia "Vague infiltrates" on CXR, no WBC change, no fever, no cough Empiric coverage with Rocephin and Azithromycin Type 2 Diabetes Sliding scale insulin coverage with accuchecks Diabetic Diet Hypertension Stable DVT Prophylaxis Gab Buck MD May 03, 2017 18:27
[2017-05-03] MEDS: PRAVASTATIN SOD 40 MG TAB PO SCH (20:37)
[2017-05-03] MEDS: cefTRIAXone INJ 1,000 MG in SODIUM CHLORIDE 0.9% INJ 100 ML IV SCH (23:01)
[2017-05-03] MEDS: AZITHROMYCIN INJ 500 MG in SODIUM CHLOR 0.9% 250 ML INJ 250 ML IV SCH (23:36)
[2017-05-04] VITALS (13 sets, daily range): BP systolic 102–147; BP diastolic 64–81; PULSE 63–78; RESP 14–18; TEMP 98–98.7; O2SAT 96–97
[2017-05-04] MEDS: glipiZIDE 5 MG TAB PO SCH ×2 (07:00→16:48)
[2017-05-04] MEDS: INSULIN ASPART SUPPLEMENTAL SCALE SQ SCH ×4 (08:00→21:00)
[2017-05-04] MEDS: LISINOPRIL 5 MG TAB PO SCH (08:14)
[2017-05-04] MEDS: CARVEDILOL 3.125 MG TAB PO SCH (08:14)
[2017-05-04] MEDS: ASPIRIN 325 MG TAB PO SCH (09:00)
[2017-05-04] MEDS: DOCUSATE SODIUM 50 MG/SENNA 8.6 MG TAB PO SCH ×2 (09:00→21:29)
[2017-05-04] MEDS: SODIUM CHLORIDE 0.9% FLUSH 10 ML FLUSH IV FLUSH SCH ×2 (09:00→21:00)
[2017-05-04] MEDS: ENOXAPARIN SODIUM 40 MG/0.4 ML SYRINGE SQ SCH (09:00)
[2017-05-04] MEDS: CLOPIDOGREL 75 MG TAB PO SCH (09:00)
[2017-05-04] MEDS ORDERED: HEPARIN-NS/PF INJ 1,000 ML ONE (12:24)
[2017-05-04] MEDS ORDERED: MIDAZOLAM HCL 2 MG/2 ML VIAL ONE (12:24)
--- NOTE | 2017-05-04 13:40 | CATHPROC ---
real5D HIS Report Study Information Study Number Admission Scheduled Start Study Start [id number] May 01 2017 1:10AM 05/04/2017 May 04 2017 12:17PM [place] Service Cardiac Catheterization Admit Source Facility Department Emergency department [facility] - Lay Out Machine Operator Physician and Clinical Staff Initial MD Cloud, Lavon Crop Farmersshaq Jung RN, Ana Luisa Barker,TOMÁS TECH2 Scrub Armida Meehan,RT(R) Procedures Performed Procedure Location (Site) Vessel Name Coronary Angiograms LCA Left Coronary Coronary Angiograms RCA Right Coronary Coronary Angiograms JAMA-LAD Left Coronary Coronary Angiograms SVG-PDA Right Coronary Coronary Angiograms Gft. Stump 1 SVG Graft LV Gram-hand inj. LV LV Ventricle Wire insertion Fem Art (right) Femoral Art Equipment Time Dishwasher Description Size Mfg Part Number Used/Scraped TRANSDUCER, TRUWAVE [id number] 12:27 DAVILA JOSE * Used W/STOCKCOCK *[id number] [id number] *[id number] *[id number] *[id number] 12:27 MEDLINE IND[employer] PACK, CCL CUSTOM * Used *[id number] 12:27 Codementor PACER PEN, SKIN DUAL W/ RULER * Used *[id number] 12:27 [facility] MEDICAL WIRE, 3MMJ .035 180CM 180CM Used *[id number] 13:06 [facility] MEDICAL WIRE, EXCHANGE 260CM 3MMJ 260CM Used *[id number] 12:27 NAMIC MANIFOLD, 4 PORT * Used *[id number] 12:27 NYCOMED OMNIPAQUE, 350 MG, 150ML 150ML [id number] 12:27 [employer] MEDICAL BLANKET,WARM AIR CCL * Used *[id number] 12:27 TERUMO MEDICAL SHEATH, FR4 TERUMO (10CM) FR 4 Used *[id number] History: Current Medications Medication Dosage/Unit Route Frequency Last Date/Time Taken ASA CARVEDILOL NORVASC PLAVIX LISINOPRIL Glucophage Glypizide Statins (any) Imdur History: Allergies Allergy Reaction oxycodone atorvastatin MUSCLE ACHES History: Risk Factors Hypertension Dyslipidemia Previous ME Yes Yes Yes Prior Valve Prior PCI Prior PCIDate Prior CABG Prior CABGDate Surgery No Yes 09/18/2011 Yes 05/02/2005 Cerebrovascular Chronic Lung On Dialysis Diabetes Diabetes Therapy Disease Disease No No No Yes Oral History: Symptoms/Diagnosis Selection Items Chest pain SOB History: CV Disease Selection Items Known CAD ME History: Stress Tests Stress or Imaging Studies Performed No History: Other Disease Selection Items CAD Gerd History: Other Current Smoker Method Quit Packs a Day Years Used Pack Years No Cigarettes 32 Years Ago 2 14 28 Labs Hgb (g/dl) Hct (%) RBC (MIL/MM3) WBC (l/cumm) Platelets (thousands) 11.60-17.00 35.00-51.00 4.00-5.90 4.00-11.00 150.00-450.00 12.6 37.4 4.6 8 172 Glucose (mg/dl) BUN (mg/dl) Creatinine (mg/dl) BUN:Creatinine (1:x) 74.00-106.00 7.00-18.00 0.50-1.30 10.00-20.00 152 22 0.8 27.5 Na (meq/l) K (meq/l) Cl (meq/l) CO2 (mmol/L) Ca (mg/dl) 136.00-145.00 3.50-5.10 98.00-107.00 21.00-32.00 8.50-10.10 140 4.2 109 23.4 8.3 PT (sec) INR (PTT:PT) 9.80-11.60 0.90-1.10 9.8 1 Troponin I (ng/ml) CPK (u/l) CPK-MB (ng/ML) 0.02-0.05 26.00-308.00 0.50-3.60 1.34 155 2.5 Medication Medication Total Dose (Bolus/Oral) Medication Total Dosage/Unit 1% XYLOCAINE 20 mL VERSED 2 mg Medications (Bolus/Oral) Medication Time Given Dosage/Unit Administered By Reason VERSED 05/04/2017 12:51:38 PM 1 mg Terell Jung RN 1 mg VERSED given in lab by Terell Jung RN in Right Antecubital via Peripheral IV. Ordered by Lavon Matias. 1% XYLOCAINE 05/04/2017 12:54:21 PM 20 mL Lavon Cloud 20 mL 1% XYLOCAINE given in lab by Lavon Cloud in Right Groin via Subcutaneous. Ordered by Lavon Alcala. VERSED 05/04/2017 12:54:35 PM 1 mg Terell Jung RN 1 mg VERSED given in lab by Terell Jung RN in Right Antecubital via Peripheral IV. Ordered by Lavon Matias. Medication (Drip) Medication Time Given Dosage/Unit Concentration/Unit Diluent (ml) Solutio n IV Solutions 05/04/2017 12:27:33 PM 0 mL (IV) 500 NaCl .9 IV Solutions given in lab by Terell Jung RN in Right Antecubital via Peripheral IV. Pump/Drip Flow = 20 ml/hr using NaCl .9. Initial Case Assessment Cardiovascular HR Rhythm NIBP Chest Pain 78 sr 132/77 0 Circulatory - Right Pulses Dorsalis Pedis Femoral 2 2 Scale (0,1,2,3,4,d) Circulatory - Left Pulses Dorsalis Pedis Femoral 3 2 Scale (0,1,2,3,4,d) Neurological State Oriented to time-place- Alert Moves all extremities person Respiration - General Respiration Rate SpO2 (%) (B/min) 10 97 Final Case Assessment Cardiovascular HR Rhythm NIBP Chest Pain 80 sr 127/74 0 Circulatory - Right Pulses Dorsalis Pedis Femoral 2 2 Scale (0,1,2,3,4,d) Circulatory - Left Pulses Dorsalis Pedis Femoral 3 2 Scale (0,1,2,3,4,d) Neurological State Oriented to time-place- Alert Moves all extremities person Respiration - General Respiration Rate SpO2 (%) (B/min) 10 95 Chronological Log Time Study Chronological Log 12:15:45 Patient arrived via Bed. 12:15:54 Patient Name, D.O.B, / Armband Verified By R.N. 12:16:00 Consent signed by the physician and the patient and verified by the Lay Out Machine Operator staff. 12:16:05 Pre-op and post- op instructions given; patient acknowledges understanding of instructions. Verbal Stimulation=2 Physical Stimulation=2 Airway=~AIRWAY~ Respiration=2 TOTAL=8. (0=absent, 1 =limited, 12:20:10 2=present) 12:21:05 Presedation assessment performed by Lay Out Machine Operator RN. 12:21:13 Patient has been NPO for More than 6Hrs. 12:21:18 Skin Breakdown-none 12:21:24 Christen Prominences Protected Vitals capture started with the following parameters, Patient=Adult, Interval=5 min, Initial Pr gmpfkv=814 mmHg, 12:25:41 Deflation Rate=5 mmHg, Cuff placed on Left Arm 12:26:51 HR=78 bpm, YPMU=764/77 mmhg, SpO2=97.0 %, Resp=10 B/min, Pain=0, Berumen=2 Assessment: Initial Case, HR=78 BPM, Rhythm=sr, YMIH=571/77 mmhg, Chest Pain=0 Right Pulses: Ernie Ped=2, Femoral=2 12:26:58 Left Pulses: Ernie Ped=3, Femoral=2 Neurological: State=Alert, Ox3, SAN Respiration: Resp=10 B/min, SpO2=97 % 12:27:32 A # 20 IV was noted in the Antecubital (right). Grade = patent IV Solutions given in lab by Terell Jung RN in Right Antecubital via Peripheral IV. Pump/Drip Flow = 20 ml/hr using 12:27:33 NaCl .9. 12:29:49 Bilateral groins prepped with 2% chlorhexidine, and draped after a 3 minute waiting time. 12:31:20 HR=76 bpm, EEZC=723/76 mmhg, SpO2=97.0 %, Resp=10 B/min 12:35:04 Pressure channel 1 zeroed. 12:36:23 HR=75 bpm, XDXB=642/68 mmhg, SpO2=97.0 %, Resp=8 B/min 12:37:15 Reference ECG taken 12:38:16 History and physical on the chart or being dictated. 12:38:20 MD paged 12:41:20 HR=74 bpm, GKHK=652/71 mmhg, SpO2=95.0 %, Resp=12 B/min 12:43:19 MD responded 12:46:17 HR=76 bpm, EMZG=819/70 mmhg, SpO2=95.0 %, Resp=10 B/min 12:47:31 MD arrived. 12:51:22 HR=71 bpm, LQYM=736/65 mmhg, SpO2=95.0 %, Resp=12 B/min 12:51:38 1 mg VERSED given in lab by Terell Jung RN in Right Antecubital via Peripheral IV. Ordered by Lavon Cloud. Time Out. Correct patient, correct procedure, correct physician, power injector loaded, or not loaded with contrast with 12:53:19 surgical team present. Time Out Concurred by MD and individual staff in procedure. 12:53:25 Case Start 20 mL 1% XYLOCAINE given in lab by Lavon Cloud in Right Groin via Subcutaneous. Ordered by Ai, 12:54:21 Lavon. 12:54:35 1 mg VERSED given in lab by Terell Jung RN in Right Antecubital via Peripheral IV. Ordered by Lavon Cloud. 12:55:16 A SHEATH, FR4 TERUMO (10CM) FR 4 was advanced into the Fem Art (right) using the Percutaneo us technique. 12:56:23 HR=79 bpm, WMYN=514/54 mmhg, SpO2=97.0 %, Resp=15 B/min A JR 4.0 INFINITI CATHETER FR 4 was advanced over a wire. OMNIPAQUE, 350 MG, 150ML 150ML was us ed for 12:57:22 injections. Recorded Pressure: LV, HR=73, Condition=Condition 1 12:58:56 (Left Ventricle) LV 138/6/14 12:59:08 The LV was manually injected with 10 cc's and visualized. OMNIPAQUE, 350 MG, 150ML 150ML us ed. Recorded Pressure: LV, Ao, HR=74, Condition=Condition 1 12:59:30 (Left Ventricle) LV 133/5/14, (Aorta) Ao 131/61/89 12:59:59 The RCA was injected and visualized at various angles. OMNIPAQUE, 350 MG, 150ML 150ML used . 13:00:15 The SVG-PDA was injected and visualized at various angles. OMNIPAQUE, 350 MG, 150ML 150ML u sed. 13:01:00 The Gft. Stump 1 was injected and visualized at various angles. OMNIPAQUE, 350 MG, 150ML 15 0ML used. 13:01:24 HR=74 bpm, LIGB=246/56 mmhg, SpO2=93.0 %, Resp=16 B/min 13:02:06 A WIRE, 3MMJ .035 180CM 180CM was inserted via Fem Art (right). 13:02:30 The JAMA-LAD was injected and visualized at various angles. contrast used. 13:06:19 HR=78 bpm, LUKS=628/65 mmhg, SpO2=94.0 %, Resp=15 B/min 13:07:11 A WIRE, EXCHANGE 260CM 3MMJ 260CM was inserted via Fem Art (right). After removing the current catheter a IM INFINITI CATHETER FR 4 was advanced over a WIRE, EXCHA NGE 260CM 13:07:24 3MMJ 260CM. 13:08:55 The JAMA-LAD was injected and visualized at various angles. OMNIPAQUE, 350 MG, 150ML 150ML used. 13:09:53 Catheter was removed A JL 4.0 INFINITI CATHETER FR 4 was advanced over a wire. OMNIPAQUE, 350 MG, 150ML 150ML was us ed for 13:09:55 injections. 13:10:03 The LCA was injected and visualized at various angles. OMNIPAQUE, 350 MG, 150ML 150ML used . 13:11:20 HR=80 bpm, YWSU=738/59 mmhg, SpO2=95.0 %, Resp=18 B/min 13:13:14 Catheter was removed 13:16:19 HR=77 bpm, NXPJ=162/62 mmhg, SpO2=96.0 %, Resp=13 B/min 13:18:43 Case End 13:21:22 HR=75 bpm, RDIX=465/67 mmhg, SpO2=95.0 %, Resp=11 B/min 13:24:12 Sheath removed; pressure applied to access site. 13:26:19 HR=76 bpm, CTZH=219/64 mmhg, SpO2=96 %, Resp=11 B/min 13:31:20 HR=79 bpm, DJAQ=982/80 mmhg, SpO2=96.0 %, Resp=14 B/min 13:36:23 HR=80 bpm, HHKK=099/74 mmhg, SpO2=95.0 %, Resp=10 B/min 13:37:25 Hemostasis obtained. 13:38:10 Sterile dressing applied to site 13:38:11 No case complications noted. 13:38:12 Cine recording checked. 13:38:14 Bedside Report will be given. Assessment: Final Case, HR=80 BPM, Rhythm=sr, HXOM=522/74 mmhg, Chest Pain=0 Right Pulses: Ernie Ped=2, Femoral=2 13:38:18 Left Pulses: Erine Ped=3, Femoral=2 Neurological: State=Alert, Ox3, SAN Respiration: Resp=10 B/min, SpO2=95 % 13:39:12 Patient moved to bed 13:39:26 Patient transported to [facility]. End Study - Contrast Media Used In Study Contrast Total Opened (mL) Total Used (mL) Total Wasted (mL) Omnipaque 70 70 0 End Study - Maximum Contrast Load Max Contrast Load (mL) 471.3 End Study - Radiation Exposure Fluoro Time (minutes) 5.3 End Study - Sheaths Sheaths Pulled By Sheath Hold Time (min) Armida Meehan End Study - Patient Disposition Complications Transferred To Interventional Outcome No Telemetry Bed No attempt made
[2017-05-04] MEDS ORDERED: BACITRACIN OINT 0.9 GM PKT TOP ONE (14:00)
[2017-05-04] MEDS ORDERED: MISC INFORMATION XX ONE (14:00)
[2017-05-04] MEDS ORDERED: IOHEXOL 350 MG/ML 100 ML BTL (for Cath Lab) OTHER ONE (14:08)
--- NOTE | 2017-05-04 14:51 | MA ---
cc: BHUPINDER WEST M.D. DATE: 05/04/2017 PROCEDURE PERFORMED A left heart catheterization, left ventriculography, coronary angiography, saphenous vein angiography, JAMA angiography. INDICATIONS Non-STEMI coronary artery disease, diabetes mellitus. PROCEDURE The patient was brought to cardiac catheterization lab, prepped and draped in the usual sterile fashion. 10 ccs of 1% lidocaine was used to locally anesthetize the right common femoral artery. A 4-Iraqi sheath was successfully placed in the right common femoral artery. A 4-Iraqi JR-4 JAMA catheter and JL-4 catheter was used to perform left and right coronary angiography, left ventriculography, saphenous vein angiography, JAMA angiography. FINDINGS The LV pressure is 130/8-10. The ejection fraction is 60%. The right coronary artery is dominant. It is occluded in the proximal segment. The SVG to right coronary artery is occluded in the proximal segment. The SVG to the OM is occluded at the os. The JAMA to the LAD is widely patent. There is 30% ostial proximal stenosis but the vessel is probably at 3.5 mm reference vessel diameter. It supplies a small LAD and diagonal which are probably 1.5 to 2 mm diameter vessels angiographically. There appears to be possibly diffuse disease versus normal vessel tapering in the mid-LAD, estimate the stenosis at possibly 40-50%. The diagonal vessel is filled retrograde from the JAMA insertion site and has what appears to be an ostial 30-40% stenosis. It bifurcates proximally with the medial branch having a 70% stenosis. The left main coronary artery has mild disease up to 20% angiographically. LAD is occluded at the first septal chief ultrasound technologist vessel. First diagonal artery has a sequential proximally 50s followed by a 70% stenosis, it is a 2.5 mm reference vessel diameter. The left circumflex vessel has subtotal occlusion in the proximal segment. The AV groove left circumflex vessel then fills and supplies two small obtuse marginal vessels, probably 1 mm in diameter and then three small posterolateral artery is 0.5 mm in diameter. There are grade 3 to 4 collaterals to the right TITO and right PDA. Right TITO and PDA appear to be 0.5 to 1 mm reference vessel diameter with no obviously significant stenotic areas. CONCLUSION 1. Severe three-vessel coronary artery disease in a right-dominant system as detailed above. 2. One of three grafts patent. 3. Preserved LV systolic function, EF 60%. 4. Euvolemic by LV pressures (130/8-10). 5. Non-STEMI. Suspect ischemia is occurring in the collateralized segment of the right TITO, PDA. 6. I do not think the vein graft to the right is acutely occluded as a troponin peak was approximately 1 and it is now declining and LV function appears to be preserved. 7. Recommend optimization of medical therapy. The patient unfortunately has not tolerated Lipitor in the past and has only been able to tolerate Pravachol. It appears that there is not much more medical adjustment that can be done and therefore, I do think the patient should be referred to [facility] for evaluation for risks and benefits of heart transplant and to be put on the list. I have explained this to the patient, he understands. 8. Advised the patient to hold his Glucophage/metformin for 48-hours postprocedure. MD TAVARES Randall/TLL /1:12 PM /1:59 PM
--- NOTE | 2017-05-04 17:58 | HHI.PR ---
Subjective Remarks I spoke with patient following his heart catheterization. 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 The recommended intervention to prevent further heart attacks will most likely be a heart transplant. The plan is to arrange continuing care and evaluation at [facility] in [place], [place]. This is a lot for the family and patient to process, but they are deeply voodoo and placing their yecenia in God. Objective Vitals Vital Signs Date Time Temp Pulse Resp B/P (MAP) Pulse Ox O2 Delivery O2 Flow Rate FiO2 05/04/17 16:00 98.2 76 16 147/81 (103) 96 05/04/17 15:22 98.2 70 14 125/68 (87) 97 05/04/17 14:17 66 102/64 (77) 05/04/17 14:02 67 14 126/68 (87) 97 05/04/17 12:08 98.0 74 16 139/78 (98) 97 05/04/17 08:08 98.6 69 16 132/71 (91) 97 05/04/17 05:04 98.5 71 18 135/70 (91) 96 05/04/17 03:56 63 05/04/17 00:03 71 05/03/17 23:40 98.6 67 16 120/67 (84) 97 05/03/17 20:35 98.3 70 18 130/70 (90) 97 05/03/17 20:03 67 I/O 05/03/17 05/03/17 05/03/17 05/04/17 05/04/17 05/04/17 07:00 15:00 23:00 07:00 15:00 23:00 Intake Total 350 ml 480 ml 960 ml Balance 350 ml 480 ml 960 ml Intake Oral 480 ml 960 ml IV Total 350 ml # Voids 2 3 # Bowel Movements 0 1 Result Diagram: 05/02/17 0623 05/02/17 0625 Objective Remarks GENERAL: Well-nourished, well-developed patient. SKIN: Warm and dry. HEAD: Normocephalic. EYES: No scleral icterus. No injection or drainage. NECK: Supple, trachea midline. No JVD or lymphadenopathy. CARDIOVASCULAR: Regular rate and rhythm without murmurs, gallops, or rubs. RESPIRATORY: Breath sounds equal bilaterally. No accessory muscle use. GASTROINTESTINAL: Abdomen soft, non-tender, nondistended. MUSCULOSKELETAL: No cyanosis, or edema. BACK: Nontender without obvious deformity. No CVA tenderness. EXTREMITIES: no edema A/P Problem List: (1) Chest pain ICD Code: R07.9 - Chest pain, unspecified (2) HTN (hypertension) ICD Code: I10 - Essential (primary) hypertension (3) PNA (pneumonia) ICD Code: J18.9 - Pneumonia, unspecified organism (4) DM (diabetes mellitus) ICD Code: E11.9 - Type 2 diabetes mellitus without complications Assessment and Plan NSTEMI & Abnormal Vessel Disease Elevated Troponin without EKG changes Cath today showed abnormal narrowing of many coronary arteries [facility] No chest pain Pneumonia "Vague infiltrates" on CXR, no WBC change, no fever, no cough Empiric coverage with Rocephin and Azithromycin Type 2 Diabetes Sliding scale insulin coverage with accuchecks Diabetic Diet Hypertension Stable DVT Prophylaxis Gab Buck MD May 04, 2017 5:58 pm
[2017-05-04] MEDS: CARVEDILOL 6.25 MG TAB PO SCH (21:28)
[2017-05-04] MEDS: PRAVASTATIN SOD 40 MG TAB PO SCH (21:29)
[2017-05-04] MEDS: SODIUM CHLORIDE 0.9% FLUSH 10 ML FLUSH IV FLUSH PRN (21:31)
[2017-05-04] MEDS: cefTRIAXone INJ 1,000 MG in SODIUM CHLORIDE 0.9% INJ 100 ML IV SCH (21:33)
[2017-05-04] MEDS: AZITHROMYCIN INJ 500 MG in SODIUM CHLOR 0.9% 250 ML INJ 250 ML IV SCH (22:20)
[2017-05-05] VITALS (12 sets, daily range): BP systolic 102–129; BP diastolic 56–74; PULSE 58–83; RESP 14–18; TEMP 97.3–98.6; O2SAT 96–98
[2017-05-05 05:20] LABS: AUTOMATED NEUTROPHIL # 4.9 TH/MM3 (1.8-7.7); BASOPHIL # 0.1 TH/MM3 (0-0.2); BASOPHIL % 0.9 % (0.0-2.0); EOSINOPHIL # 0.2 TH/MM3 (0-0.4); EOSINOPHIL % 2.9 % (0.0-4.0); HEMATOCRIT 38.5 % (39.0-51.0); HEMOGLOBIN 12.8 GM/DL (13.0-17.0); LYMPH % 28.1 % (9.0-44.0); LYMPHOCYTE # 2.4 TH/MM3 (1.0-4.8); MEAN CELL VOLUME 79.1 FL (80.0-100.0); MEAN CORPUSCULAR HEMOGLOBIN 26.3 PG (27.0-34.0); MEAN CORPUSCULAR HGB CONC 33.3 % (32.0-36.0); MEAN PLATELET VOLUME 8.6 FL (7.0-11.0); MONO % 9.9 % (0.0-8.0); MONOCYTE # 0.8 TH/MM3 (0-0.9); NEUT % 58.2 % (16.0-70.0); PLATELET COUNT 187 TH/MM3 (150-450); RED BLOOD COUNT 4.86 MIL/MM3 (4.50-5.90); RED CELL DISTRIBUTION WIDTH 14.2 % (11.6-17.2); WHITE BLOOD COUNT 8.4 TH/MM3 (4.0-11.0)
[2017-05-05 05:46] LABS: BICARBONATE 23.5 MEQ/L (21.0-32.0); CALCIUM 8.7 MG/DL (8.5-10.1); CREATININE 0.78 MG/DL (0.60-1.30)
[2017-05-05] MEDS: glipiZIDE 5 MG TAB PO SCH ×2 (06:27→18:20)
[2017-05-05] MEDS: ISOSORBIDE MONONITRATE 60 MG TAB PO SCH (06:27)
[2017-05-05] MEDS: INSULIN ASPART SUPPLEMENTAL SCALE SQ SCH ×4 (08:00→19:50)
[2017-05-05] MEDS: SODIUM CHLORIDE 0.9% FLUSH 10 ML FLUSH IV FLUSH SCH ×2 (09:00→19:40)
[2017-05-05] MEDS: DOCUSATE SODIUM 50 MG/SENNA 8.6 MG TAB PO SCH ×2 (09:33→19:40)
[2017-05-05] MEDS: ASPIRIN 325 MG TAB PO SCH (09:33)
[2017-05-05] MEDS: CARVEDILOL 6.25 MG TAB PO SCH ×2 (09:33→19:39)
[2017-05-05] MEDS: LISINOPRIL 5 MG TAB PO SCH (09:34)
[2017-05-05] MEDS: CLOPIDOGREL 75 MG TAB PO SCH (09:39)
--- NOTE | 2017-05-05 13:44 | PD.CARD.PN ---
Subjective Subjective Remarks ambulating without symptoms, denies specifically chest pain ,dyspnea, dizziness Objective Medications Current Medications Medications (Trade) Dose Ordered Sig/Jenni Route Start Time Stop Time Status Last Admin Nitroglycerin/ Dextrose 250 ml @ 1.5 mls/hr TITRATE PRN IV 04/30/17 23:15 04/30/17 23:48 (D50w (Vial) Inj) 50 ml UNSCH PRN IV PUSH 05/01/17 01:15 (Glucagon Inj) 1 mg UNSCH PRN OTHER 05/01/17 01:15 (NovoLOG SUPPLEMENTAL SCALE) 1 ACHS SLIDING SCALE SQ 05/01/17 08:00 05/04/17 16:56 Ceftriaxone Sodium 1000 mg/ Sodium Chloride 100 ml @ 200 mls/hr Q24H IV 05/01/17 23:00 05/04/17 21:33 Azithromycin 500 mg/Sodium Chloride 250 ml @ 250 mls/hr Q24H IV 05/02/17 00:00 05/04/17 22:20 (Duoneb Neb) 1 ampule Q4HR NEB PRN NEB 05/01/17 01:15 (Nitroglycerin 2% Oint) 0.5 inch Q6HR PRN TOPICAL 05/01/17 01:15 (Zofran Inj) 4 mg Q6H PRN IVP 05/01/17 01:15 (Tylenol) 650 mg Q6H PRN PO 05/01/17 01:15 (Morphine Inj) 2 mg Q3H PRN IV PUSH 05/01/17 01:15 (Jackie-Colace) 1 tab BID PO 05/01/17 09:00 05/05/17 09:33 (Milk Of Magnesia Liq) 30 ml Q12H PRN PO 05/01/17 01:15 (Senokot) 17.2 mg Q12H PRN PO 05/01/17 01:15 (Dulcolax Supp) 10 mg DAILY PRN RECTAL 05/01/17 01:15 (Lactulose Liq) 30 ml DAILY PRN PO 05/01/17 01:15 (Norvasc) 10 mg DAILY PO 05/01/17 09:00 05/05/17 09:33 (Aspirin) 325 mg DAILY PO 05/01/17 09:00 05/05/17 09:33 (Plavix) 75 mg DAILY PO 05/01/17 09:00 05/05/17 09:39 (Glucotrol) 5 mg BIDAC PO 05/01/17 07:00 05/05/17 06:27 (Prinivil) 5 mg DAILY PO 05/01/17 09:00 05/05/17 09:34 (Pravachol) 40 mg HS PO 05/01/17 21:00 05/04/17 21:29 (Ambien) 5 mg HS PRN PO 05/03/17 10:30 (NS Flush) 2 ml BID IV FLUSH 05/04/17 21:00 (NS Flush) 2 ml UNSCH PRN IV FLUSH 05/04/17 14:00 05/04/17 21:31 (Imdur) 60 mg DAILY@07 PO 05/05/17 07:00 05/05/17 06:27 (Coreg) 6.25 mg Q12HR PO 05/04/17 21:00 05/05/17 09:33 Vital Signs / I&O Vital Signs Date Time Temp Pulse Resp B/P (MAP) Pulse Ox O2 Delivery O2 Flow Rate FiO2 05/05/17 09:10 97.3 83 16 113/73 (86) 05/05/17 06:00 64 05/05/17 05:00 64 05/05/17 04:00 62 05/05/17 04:00 98.4 73 14 108/63 (78) 97 05/05/17 03:00 68 05/05/17 02:00 58 05/05/17 01:00 66 05/05/17 00:00 70 05/05/17 00:00 98.6 71 14 102/56 (71) 96 05/04/17 23:00 76 05/04/17 22:00 76 05/04/17 21:00 74 05/04/17 20:00 98.7 73 14 134/72 (92) 96 05/04/17 20:00 78 05/04/17 16:00 98.2 76 16 147/81 (103) 96 05/04/17 15:22 98.2 70 14 125/68 (87) 97 05/04/17 14:17 66 102/64 (77) 05/04/17 14:02 67 14 126/68 (87) 97 I/O 1/3/18 105/04/17 05/05/17 05/05/17 05/05/17 07:00 15:00 23:00 07:00 15:00 23:00 Intake Total 480 ml Balance 480 ml Intake Oral 480 ml # Voids 4 # Bowel Movements 1 Physical Exam GENERAL: SKIN: Warm and dry. HEAD: Normocephalic. EYES: No scleral icterus. No injection or drainage. NECK: Supple, trachea midline. No JVD or lymphadenopathy. CARDIOVASCULAR: Regular rate and rhythm without murmurs, gallops, or rubs. RESPIRATORY: Breath sounds equal bilaterally. No accessory muscle use. GASTROINTESTINAL: Abdomen soft, non-tender, nondistended. MUSCULOSKELETAL: No cyanosis, or edema. BACK: Nontender without obvious deformity. No CVA tenderness. Laboratory Laboratory Tests Test 05/05/17 03:31 White Blood Count 8.4 TH/MM3 Red Blood Count 4.86 MIL/MM3 Hemoglobin 12.8 GM/DL Hematocrit 38.5 % Mean Corpuscular Volume 79.1 FL Mean Corpuscular Hemoglobin 26.3 PG Mean Corpuscular Hemoglobin Concent 33.3 % Red Cell Distribution Width 14.2 % Platelet Count 187 TH/MM3 Mean Platelet Volume 8.6 FL Neutrophils (%) (Auto) 58.2 % Lymphocytes (%) (Auto) 28.1 % Monocytes (%) (Auto) 9.9 % Eosinophils (%) (Auto) 2.9 % Basophils (%) (Auto) 0.9 % Neutrophils # (Auto) 4.9 TH/MM3 Lymphocytes # (Auto) 2.4 TH/MM3 Monocytes # (Auto) 0.8 TH/MM3 Eosinophils # (Auto) 0.2 TH/MM3 Basophils # (Auto) 0.1 TH/MM3 CBC Comment DIFF FINAL Differential Comment Blood Urea Nitrogen 25 MG/DL Creatinine 0.78 MG/DL Random Glucose 95 MG/DL Calcium Level 8.7 MG/DL Sodium Level 139 MEQ/L Potassium Level 4.0 MEQ/L Chloride Level 104 MEQ/L Carbon Dioxide Level 23.5 MEQ/L Anion Gap 12 MEQ/L Estimat Glomerular Filtration Rate 101 ML/MIN Assessment and Plan Problem List: (1) CAD (coronary artery disease) ICD Codes: I25.10 - Atherosclerotic heart disease of [place] coronary artery without angina pectoris (2) Unstable angina ICD Codes: I20.0 - Unstable angina Status: Acute (3) HTN (hypertension) ICD Codes: I10 - Essential (primary) hypertension (4) DM (diabetes mellitus) ICD Codes: E11.9 - Type 2 diabetes mellitus without complications Assessment and Plan 1.) NSTEMI - severe 3 vessel cad, poor targets, progressive disease on pravastatin, intolerant of lipitor, / [facility] patent, ct surgery consult for eval of risks/benefits of redo cabg, if not candidate rec hospital to hospital transfer to [facility] for heart transplant evaluation; assymptomatic on coreg 6.25 mg bid, imdur 60 mg qd, plavix, aspirin, pravachol Lavon Cloud MD May 05, 2017 13:44
--- NOTE | 2017-05-05 14:18 | HHI.PR ---
Subjective Remarks Pt states he gets a bit "winded" when he goes for walks. denies any chest pains nausea or vomiting. at bedside RN notifies me that Dr. Cloud consulted CV sx. Objective Vitals Vital Signs Date Time Temp Pulse Resp B/P (MAP) Pulse Ox O2 Delivery O2 Flow Rate FiO2 05/05/17 09:10 97.3 83 16 113/73 (86) 05/05/17 06:00 64 05/05/17 05:00 64 05/05/17 04:00 62 05/05/17 04:00 98.4 73 14 108/63 (78) 97 05/05/17 03:00 68 05/05/17 02:00 58 05/05/17 01:00 66 05/05/17 00:00 70 05/05/17 00:00 98.6 71 14 102/56 (71) 96 05/04/17 23:00 76 05/04/17 22:00 76 05/04/17 21:00 74 05/04/17 20:00 98.7 73 14 134/72 (92) 96 05/04/17 20:00 78 05/04/17 16:00 98.2 76 16 147/81 (103) 96 05/04/17 15:22 98.2 70 14 125/68 (87) 97 05/04/17 14:17 66 102/64 (77) I/O 05/04/17 05/04/17 05/04/17 05/05/17 05/05/17 05/05/17 07:00 15:00 23:00 07:00 15:00 23:00 Intake Total 480 ml Balance 480 ml Intake Oral 480 ml # Voids 4 # Bowel Movements 1 Result Diagram: 05/05/17 0331 05/05/17 0331 Imaging Last Impressions Chest X-Ray 04/30/17 1685 Signed Impressions: Service Date/Time: Sunday, April 30, 2017 23:22 - CONCLUSION: Left base pneumonia in the proper clinical setting. Followup 2 view chest x-ray recommended in a few weeks to confirm resolution. Nicho Bruroughs MD Objective Remarks GENERAL: laying in bed EYES: No scleral icterus. No injection or drainage. NECK: trachea midline CARDIOVASCULAR: Regular rate and rhythm without murmurs RESPIRATORY: Breath sounds equal bilaterally. No accessory muscle use. GASTROINTESTINAL: Abdomen soft, non-tender, nondistended. MUSCULOSKELETAL: No edema. moving extremities. A/P Problem List: (1) Chest pain ICD Code: R07.9 - Chest pain, unspecified (2) HTN (hypertension) ICD Code: I10 - Essential (primary) hypertension (3) PNA (pneumonia) ICD Code: J18.9 - Pneumonia, unspecified organism (4) DM (diabetes mellitus) ICD Code: E11.9 - Type 2 diabetes mellitus without complications Assessment and Plan NSTEMI & Abnormal Vessel Disease Elevated Troponin without EKG changes Cath showed abnormal narrowing of many coronary arteries Cardiology in contact [facility] to review case for likely heart transplant CT surgery consult has been placed for eval of risks/benefits of redo cabg, if not candidate plan will be for a hospital to hospital transfer to [facility] for heart transplant evaluation; on on coreg 6.25 mg bid, imdur 60 mg qd, plavix, aspirin, pravachol No chest pain Pneumonia "Vague infiltrates" on CXR, no WBC change, no fever, no cough Empiric coverage with Rocephin and Azithromycin Type 2 Diabetes Sliding scale insulin coverage with accuchecks Diabetic Diet Hypertension Stable DVT Prophylaxis SCD, encourage ambulation, awaiting for CV sx recs. heparin for now Discharge Planning awaiting CV sx and Cards recShaylee Mello MD May 05, 2017 14:18
[2017-05-05] MEDS: PRAVASTATIN SOD 40 MG TAB PO SCH (19:39)
[2017-05-05] MEDS: HEPARIN SODIUM - SQ 10,000 UNITS/ML VIAL SQ SCH (19:40)
[2017-05-05] MEDS: cefTRIAXone INJ 1,000 MG in SODIUM CHLORIDE 0.9% INJ 100 ML IV SCH (22:28)
[2017-05-05] MEDS: AZITHROMYCIN INJ 500 MG in SODIUM CHLOR 0.9% 250 ML INJ 250 ML IV SCH (23:17)
[2017-05-06] VITALS (8 sets, daily range): BP systolic 109–129; BP diastolic 59–78; PULSE 68–72; RESP 14–19; TEMP 97.8–99; O2SAT 96–97
[2017-05-06] MEDS: ISOSORBIDE MONONITRATE 60 MG TAB PO SCH (06:36)
[2017-05-06] MEDS: glipiZIDE 5 MG TAB PO SCH ×2 (06:36→17:56)
[2017-05-06] MEDS: INSULIN ASPART SUPPLEMENTAL SCALE SQ SCH ×4 (08:00→21:02)
[2017-05-06] MEDS: DOCUSATE SODIUM 50 MG/SENNA 8.6 MG TAB PO SCH ×2 (08:11→20:48)
[2017-05-06] MEDS: CARVEDILOL 6.25 MG TAB PO SCH (08:11)
[2017-05-06] MEDS: ASPIRIN 325 MG TAB PO SCH (08:11)
[2017-05-06] MEDS: LISINOPRIL 5 MG TAB PO SCH (08:12)
[2017-05-06] MEDS: HEPARIN SODIUM - SQ 10,000 UNITS/ML VIAL SQ SCH ×2 (08:12→20:50)
[2017-05-06] MEDS: CLOPIDOGREL 75 MG TAB PO SCH (08:12)
[2017-05-06] MEDS: SODIUM CHLORIDE 0.9% FLUSH 10 ML FLUSH IV FLUSH SCH ×2 (08:13→20:50)
--- NOTE | 2017-05-06 12:24 | PD.CARD.PN ---
Subjective Subjective Remarks dyspnea with ambulating to br, admits to intermittent chest pain ,dyspnea, dizziness Objective Medications Current Medications Medications (Trade) Dose Ordered Sig/Jenni Route Start Time Stop Time Status Last Admin Nitroglycerin/ Dextrose 250 ml @ 1.5 mls/hr TITRATE PRN IV 04/30/17 23:15 04/30/17 23:48 (D50w (Vial) Inj) 50 ml UNSCH PRN IV PUSH 05/01/17 01:15 (Glucagon Inj) 1 mg UNSCH PRN OTHER 05/01/17 01:15 (NovoLOG SUPPLEMENTAL SCALE) 1 ACHS SLIDING SCALE SQ 05/01/17 08:00 05/05/17 19:50 Ceftriaxone Sodium 1000 mg/ Sodium Chloride 100 ml @ 200 mls/hr Q24H IV 05/01/17 23:00 05/05/17 22:28 Azithromycin 500 mg/Sodium Chloride 250 ml @ 250 mls/hr Q24H IV 05/02/17 00:00 05/05/17 23:17 (Duoneb Neb) 1 ampule Q4HR NEB PRN NEB 05/01/17 01:15 (Nitroglycerin 2% Oint) 0.5 inch Q6HR PRN TOPICAL 05/01/17 01:15 (Zofran Inj) 4 mg Q6H PRN IVP 05/01/17 01:15 (Tylenol) 650 mg Q6H PRN PO 05/01/17 01:15 (Morphine Inj) 2 mg Q3H PRN IV PUSH 05/01/17 01:15 (Jackie-Colace) 1 tab BID PO 05/01/17 09:00 05/06/17 08:11 (Milk Of Magnesia Liq) 30 ml Q12H PRN PO 05/01/17 01:15 (Senokot) 17.2 mg Q12H PRN PO 05/01/17 01:15 (Dulcolax Supp) 10 mg DAILY PRN RECTAL 05/01/17 01:15 (Lactulose Liq) 30 ml DAILY PRN PO 05/01/17 01:15 (Norvasc) 10 mg DAILY PO 05/01/17 09:00 05/06/17 08:11 (Aspirin) 325 mg DAILY PO 05/01/17 09:00 05/06/17 08:11 (Plavix) 75 mg DAILY PO 05/01/17 09:00 05/06/17 08:12 (Glucotrol) 5 mg BIDAC PO 05/01/17 07:00 05/06/17 06:36 (Prinivil) 5 mg DAILY PO 05/01/17 09:00 05/06/17 08:12 (Pravachol) 40 mg HS PO 05/01/17 21:00 05/05/17 19:39 (Ambien) 5 mg HS PRN PO 05/03/17 10:30 (NS Flush) 2 ml BID IV FLUSH 05/04/17 21:00 05/06/17 08:13 (NS Flush) 2 ml UNSCH PRN IV FLUSH 05/04/17 14:00 05/04/17 21:31 (Imdur) 60 mg DAILY@07 PO 05/05/17 07:00 05/06/17 06:36 (Coreg) 6.25 mg Q12HR PO 05/04/17 21:00 05/06/17 08:11 (Heparin Inj) 5,000 units Q12HR SQ 05/05/17 21:00 05/06/17 08:12 Vital Signs / I&O Vital Signs Date Time Temp Pulse Resp B/P (MAP) Pulse Ox O2 Delivery O2 Flow Rate FiO2 05/06/17 08:06 97.9 71 14 125/63 (83) 96 05/06/17 08:00 69 05/06/17 04:00 97.8 68 16 129/78 (95) 96 05/06/17 00:00 99.0 69 19 119/66 (83) 97 05/05/17 20:23 77 05/05/17 20:00 98.0 74 18 129/63 (85) 96 05/05/17 16:51 98.4 72 18 118/74 (89) 98 I/O 05/05/17 05/05/17 05/05/17 05/06/17 05/06/17 05/06/17 07:00 15:00 23:00 07:00 15:00 23:00 Intake Total 240 ml Output Total 240 ml Balance 0 ml Intake Oral 240 ml Output Urine Total 240 ml Physical Exam GENERAL: SKIN: Warm and dry. HEAD: Normocephalic. EYES: No scleral icterus. No injection or drainage. NECK: Supple, trachea midline. No JVD or lymphadenopathy. CARDIOVASCULAR: Regular rate and rhythm without murmurs, gallops, or rubs. RESPIRATORY: Breath sounds equal bilaterally. No accessory muscle use. GASTROINTESTINAL: Abdomen soft, non-tender, nondistended. MUSCULOSKELETAL: No cyanosis, or edema. BACK: Nontender without obvious deformity. No CVA tenderness. Assessment and Plan Problem List: (1) CAD (coronary artery disease) ICD Codes: I25.10 - Atherosclerotic heart disease of [place] coronary artery without angina pectoris (2) Unstable angina ICD Codes: I20.0 - Unstable angina Status: Acute (3) HTN (hypertension) ICD Codes: I10 - Essential (primary) hypertension (4) DM (diabetes mellitus) ICD Codes: E11.9 - Type 2 diabetes mellitus without complications Assessment and Plan 1.) NSTEMI - severe 3 vessel cad, poor targets, progressive disease on pravastatin, intolerant of lipitor, 1/3 [facility] patent, ct surgery consult for eval of risks/benefits of redo cabg, if not candidate rec hospital to hospital transfer to [facility] for heart transplant evaluation; assymptomatic on coreg 6.25 mg bid, imdur 60 mg qd, plavix, aspirin, pravachol Lavon Cloud MD May 06, 2017 12:24
--- NOTE | 2017-05-06 12:59 | MB ---
cc: JESUS MANUEL VELIZ MD DATE OF CONSULTATION 05/06/2017 DATE OF 1955 HISTORY OF PRESENT ILLNESS A 62-year-old male with known history of coronary artery disease presented to the emergency room via [facility] with chest pain. He had been having pain off and on for the last couple of weeks, more like chest pressure, but the pain actually started about 9:30 p.m. on the day of admission at rest. He had eaten probably an hour prior to onset. The pain apparently radiated to his neck on both sides. He did not have any nausea or vomiting, no diaphoresis. He was hypertensive on admission. Pain was about 9/10. The patient received nitro which improved his pain. His troponins were elevated at 1.65. EKG showed sinus rhythm with a septal infarct, age undetermined. He was ruled in for a non-STEMI. He has a history of prior coronary artery bypass grafting x4 [place] [address] Riley Harp. Surgery at that time was a JAMA to the LAD, saphenous vein graft to the OM1, saphenous vein graft to the OM-2, saphenous vein graft to the PDA. Prior to that the patient had an [place]. Also, in 2011 he was ruled in for an ST-segment [place]. He underwent cardiac cath at that time and had a bare metal stent to the mid distal saphenous vein graft that was to the right posterior descending artery. He states he has had three stents since his initial surgery. He states he has been compliant with his medication. On this admission he underwent coronary artery catheterization which showed ejection fraction of 60%; left main disease of 20%, JAMA to the LAD graft with 30% stenosis; saphenous vein graft to the OM was 100% occluded; saphenous vein graft to the RCA was 100% occluded; diagonal had 75% stenosis; circumflex 95%; RCA 100%. The patient was found to have severe three-vessel disease in a right dominant system, one of three grafts patent. We were consulted to evaluate for probable redo coronary artery bypass grafting. The cardiac cath was evaluated by Dr. Jesus Manuel Veliz. There appears to be no viable targets and recommendation was for maximizing medical therapy and possible referral to the [facility] for evaluation of heart transplant. PAST MEDICAL HISTORY 1. Diabetes mellitus on oral medications. 2. Hypertension. 3. Hyperlipidemia. 4. Intolerant to Lipitor, however, he can take Crestor. 5. Prior [place]. PAST SURGICAL HISTORY 1. Coronary artery bypass graft x 4 in 2005. 2. Appendectomy. 3. Hernia repair. FAMILY HISTORY Noncontributory. SOCIAL HISTORY The patient is . He does have eight children. He does have foster children in his home. Prior history of tobacco abuse, quit in 1984, smoked for about 14 years. No alcohol in the last 32 years. Retired from his [employer] job. Lives with his and children. REVIEW OF SYSTEMS GENERAL: In general no night sweats, fever, heat or cold intolerance. SKIN: No psoriasis, itching or hives. HEENT: No blurred vision or hearing loss. RESPIRATORY: Some shortness of breath. CARDIOVASCULAR: As above in the HPI. GASTROINTESTINAL: No diarrhea or vomiting. GENITOURINARY: No burning, frequency, urgency. DIRECTOR INFORMATION SECURITY: No history of TIA, CVA, seizure disorder. ENDOCRINE: Positive for diabetes. PHYSICAL EXAMINATION VITAL SIGNS: Blood pressure 120/60, heart rate 70, afebrile. GENERAL: The patient is awake, alert, in no acute distress. HEENT: Head is normocephalic, atraumatic. Pupils equal and reactive. Oral mucosa pink and moist. NECK: Supple. No JVD. HEART: Heart sounds S1, S2, regular rate and rhythm. No audible rubs, murmurs or gallops. He has a well-healed sternotomy scar. He does have a protruding wire on the proximal portion of the sternum that is not protruding through the skin; however, it is prominent that he has had since his surgery. LUNGS: Clear to auscultation. No wheezes, rales or rhonchi. ABDOMEN: Soft, nontender. No masses or organomegaly. EXTREMITIES: A well-healed scar to the left medial lower extremity from his prior SVG, and also a scar to the midportion of the right lower leg. He has palpable distal pulses. LABORATORY Hemoglobin 12, hematocrit 38, white cell count 8.4, platelet count 187. Sodium 139, potassium 4.0, BUN 25, creatinine 0.78, AST 17, ALT 21. INR 1.0. IMAGING Chest x-ray shows some left base atelectasis, probable pneumonia. He has been treated with Zithromax and Rocephin. IMPRESSION This is a gentleman admitted with a [id number] KY, prior history of ST-segment [place] and coronary artery bypass grafting in 2005. Cardiac films have been evaluated by Dr. Jesus Manuel Veliz. He will discuss with Dr. Cloud regarding possible transfer or follow-up as an outpatient with the [facility] to be evaluated for candidacy of possible heart transplant. Further discussion as per Dr. Jesus Manuel Veliz. Dictated by: JAYLENE Stein Jesus Manuel SEWELL /10:27 AM /12:46 PM
--- NOTE | 2017-05-06 14:34 | ECHRPT ---
Indication: pre op cabg CONCLUSIONS Normal left ventricular size. The left ventricular systolic function is mildly reduced with an estimated ejection fraction in the range of 45- 50%. Mild mitral valve regurgitation. No aortic valve regurgitation. No aortic valve stenosis. There is mild tricuspid valve regurgitation. The estimated pulmonary arterial pressure is _32_ mmHg. The pulmonary valve is not well visualized. BP: / HR: Rhythm: Technical Quality:Good FINDINGS LEFT VENTRICLE Normal left ventricular size. The left ventricular systolic function is mildly reduced with an estimated ejection fraction in the range of 45- 50%. RIGHT VENTRICLE Normal right ventricular size and systolic function. LEFT ATRIUM The left atrial size is normal. RIGHT ATRIUM The right atrial size is normal. ATRIAL SEPTUM Normal atrial septal thickness without atrial level shunting by limited color doppler interrogation. AORTA The aortic root and proximal ascending aorta are normal in size on limited imaging. MITRAL VALVE Structurally normal mitral valve. Mild mitral valve regurgitation. AORTIC VALVE Trileaflet aortic valve. No aortic valve regurgitation. No aortic valve stenosis. TRICUSPID VALVE Structurally normal tricuspid valve. There is mild tricuspid valve regurgitation. The estimated pulmonary arterial pressure is _32_ mmHg. PULMONARY VALVE The pulmonary valve is not well visualized. VESSELS The inferior vena cava is normal in size. PERICARDIUM No pericardial effusion. Gautam Longoria MD (Electronically Signed) Final Date:06 May 2017 14:33
--- NOTE | 2017-05-06 14:57 | HHI.PR ---
Subjective Remarks Pt doing ok, no chest pain or SOB at rest, does get winded w ambulation. no nausea or vomiting. good appetite. Spoke w vascular sx Objective Vitals Vital Signs Date Time Temp Pulse Resp B/P (MAP) Pulse Ox O2 Delivery O2 Flow Rate FiO2 05/06/17 12:45 98.2 72 14 109/59 (76) 97 05/06/17 08:06 97.9 71 14 125/63 (83) 96 05/06/17 08:00 69 05/06/17 04:00 97.8 68 16 129/78 (95) 96 05/06/17 00:00 99.0 69 19 119/66 (83) 97 05/05/17 20:23 77 05/05/17 20:00 98.0 74 18 129/63 (85) 96 05/05/17 16:51 98.4 72 18 118/74 (89) 98 I/O 05/05/17 05/05/17 05/05/17 05/06/17 05/06/17 05/06/17 07:00 15:00 23:00 07:00 15:00 23:00 Intake Total 240 ml Output Total 240 ml Balance 0 ml Intake Oral 240 ml Output Urine Total 240 ml Result Diagram: 05/05/17 0331 05/05/17 0331 Imaging Last Impressions Chest X-Ray 04/30/176 Signed Impressions: Service Date/Time: Sunday, April 30, 2017 23:22 - CONCLUSION: Left base pneumonia in the proper clinical setting. Followup 2 view chest x-ray recommended in a few weeks to confirm resolution. Nicho Burroughs MD Objective Remarks GENERAL: laying in bed EYES: No scleral icterus. No injection or drainage. NECK: trachea midline CARDIOVASCULAR: Regular rate and rhythm without murmurs RESPIRATORY: Breath sounds equal bilaterally. No accessory muscle use. GASTROINTESTINAL: Abdomen soft, non-tender, nondistended. MUSCULOSKELETAL: No edema. moving extremities. A/P Problem List: (1) Chest pain ICD Code: R07.9 - Chest pain, unspecified (2) HTN (hypertension) ICD Code: I10 - Essential (primary) hypertension (3) PNA (pneumonia) ICD Code: J18.9 - Pneumonia, unspecified organism (4) DM (diabetes mellitus) ICD Code: E11.9 - Type 2 diabetes mellitus without complications Assessment and Plan NSTEMI & Abnormal Vessel Disease Elevated Troponin without EKG changes Cath showed abnormal narrowing of many coronary arteries Cardiology in contact w [facility] to review case for likely heart transplant CT surgery evaluated the patient and awaiting final recs. on coreg 6.25 mg bid , imdur 60 mg qd, plavix, aspirin, pravachol No chest pain Pneumonia "Vague infiltrates" on CXR, no WBC change, no fever, no cough Empiric coverage with Rocephin and Azithromycin Type 2 Diabetes Sliding scale insulin coverage with accuchecks Diabetic Diet Hypertension Stable DVT Prophylaxis SCD, encourage ambulation, awaiting for CV sx recs. heparin for now Discharge Planning awaiting CV sx and Cards recs Shaylee Regalado MD May 06, 2017 14:57
[2017-05-06] MEDS: PRAVASTATIN SOD 40 MG TAB PO SCH (20:49)
[2017-05-06] MEDS: CARVEDILOL 12.5 MG TAB PO SCH (20:49)
[2017-05-06] MEDS: cefTRIAXone INJ 1,000 MG in SODIUM CHLORIDE 0.9% INJ 100 ML IV SCH (23:31)
[2017-05-07] VITALS (9 sets, daily range): BP systolic 112–127; BP diastolic 57–69; PULSE 64–116; RESP 16–18; TEMP 96.7–98.6; O2SAT 95–100
[2017-05-07] MEDS: AZITHROMYCIN INJ 500 MG in SODIUM CHLOR 0.9% 250 ML INJ 250 ML IV SCH ×2 (00:17→23:44)
[2017-05-07] MEDS: glipiZIDE 5 MG TAB PO SCH ×2 (07:29→17:05)
[2017-05-07] MEDS: ISOSORBIDE MONONITRATE 60 MG TAB PO SCH (07:32)
[2017-05-07] MEDS: INSULIN ASPART SUPPLEMENTAL SCALE SQ SCH ×4 (08:00→21:37)
[2017-05-07] MEDS: CARVEDILOL 12.5 MG TAB PO SCH ×2 (08:41→21:37)
[2017-05-07] MEDS: DOCUSATE SODIUM 50 MG/SENNA 8.6 MG TAB PO SCH ×2 (08:42→21:37)
[2017-05-07] MEDS: HEPARIN SODIUM - SQ 10,000 UNITS/ML VIAL SQ SCH ×2 (08:42→21:38)
[2017-05-07] MEDS: CLOPIDOGREL 75 MG TAB PO SCH (08:42)
[2017-05-07] MEDS: LISINOPRIL 5 MG TAB PO SCH (08:42)
[2017-05-07] MEDS: ASPIRIN 325 MG TAB PO SCH (08:42)
--- NOTE | 2017-05-07 17:02 | HHI.PR ---
Subjective Remarks Pt remains in positive spirits despite his cardiac condition that will require a heart transplant. He is awaiting word from a receiving hospital about his care plan. Objective Vitals Vital Signs Date Time Temp Pulse Resp B/P (MAP) Pulse Ox O2 Delivery O2 Flow Rate FiO2 05/07/17 12:44 97.5 65 16 112/59 (76) 96 05/07/17 08:30 98.5 67 16 119/69 (86) 97 05/07/17 05:16 98.4 66 114/67 (83) 97 05/07/17 04:01 64 05/07/17 00:18 98.6 69 16 116/57 (76) 100 05/07/17 00:06 71 05/06/17 20:41 98.0 72 18 115/65 (82) 97 05/06/17 20:23 70 05/06/17 17:58 97.8 68 14 125/68 (87) 97 I/O 05/06/17 05/06/17 05/06/17 05/07/17 05/07/17 05/07/17 07:00 15:00 23:00 07:00 15:00 23:00 Intake Total 240 ml 600 ml 625 ml Output Total 240 ml Balance 0 ml 600 ml 625 ml Intake Oral 240 ml 600 ml 625 ml Output Urine Total 240 ml # Voids 3 2 # Bowel Movements 2 Result Diagram: 05/05/17 03305/05/17 0331 Objective Remarks GENERAL: Well-nourished, well-developed patient. SKIN: Warm and dry. HEAD: Normocephalic. EYES: No scleral icterus. No injection or drainage. NECK: Supple, trachea midline. No JVD or lymphadenopathy. CARDIOVASCULAR: Regular rate and rhythm without murmurs, gallops, or rubs. RESPIRATORY: Breath sounds equal bilaterally. No accessory muscle use. GASTROINTESTINAL: Abdomen soft, non-tender, nondistended. MUSCULOSKELETAL: No cyanosis, or edema. BACK: Nontender without obvious deformity. No CVA tenderness. EXTREMITIES: no edema A/P Problem List: (1) Chest pain ICD Code: R07.9 - Chest pain, unspecified (2) HTN (hypertension) ICD Code: I10 - Essential (primary) hypertension (3) PNA (pneumonia) ICD Code: J18.9 - Pneumonia, unspecified organism (4) DM (diabetes mellitus) ICD Code: E11.9 - Type 2 diabetes mellitus without complications Assessment and Plan NSTEMI & Abnormal Vessel Disease Elevated Troponin without EKG changes Cath today showed abnormal narrowing of many coronary arteries Cardiology is contacting [facility] to review case for likely heart transplant No chest pain We discussed Vincentian diet vs. plant-based diet regarding outcomes in coronary artery disease. Pneumonia "Vague infiltrates" on CXR, no WBC change, no fever, no cough Empiric coverage with Rocephin and Azithromycin until discharged Type 2 Diabetes Sliding scale insulin coverage with accuchecks Diabetic Diet DVT Prophylaxis Lovenox Gab Mohr MD May 07, 2017 5:02 pm
--- NOTE | 2017-05-07 17:27 | PD.CARD.PN ---
Subjective Subjective Remarks denies chest pain, dizziness, mild dyspnea ambulating halls Objective Medications Current Medications Medications (Trade) Dose Ordered Sig/Jenni Route Start Time Stop Time Status Last Admin Nitroglycerin/ Dextrose 250 ml @ 1.5 mls/hr TITRATE PRN IV 04/30/17 23:15 04/30/17 23:48 (D50w (Vial) Inj) 50 ml UNSCH PRN IV PUSH 05/01/17 01:15 (Glucagon Inj) 1 mg UNSCH PRN OTHER 05/01/17 01:15 (NovoLOG SUPPLEMENTAL SCALE) 1 ACHS SLIDING SCALE SQ 05/01/17 08:00 05/07/17 17:09 Ceftriaxone Sodium 1000 mg/ Sodium Chloride 100 ml @ 200 mls/hr Q24H IV 05/01/17 23:00 05/06/17 23:31 Azithromycin 500 mg/Sodium Chloride 250 ml @ 250 mls/hr Q24H IV 05/02/17 00:00 05/07/17 00:17 (Duoneb Neb) 1 ampule Q4HR NEB PRN NEB 05/01/17 01:15 (Nitroglycerin 2% Oint) 0.5 inch Q6HR PRN TOPICAL 05/01/17 01:15 (Zofran Inj) 4 mg Q6H PRN IVP 05/01/17 01:15 (Tylenol) 650 mg Q6H PRN PO 05/01/17 01:15 (Morphine Inj) 2 mg Q3H PRN IV PUSH 05/01/17 01:15 (Jackie-Colace) 1 tab BID PO 05/01/17 09:00 05/07/17 08:42 (Milk Of Magnesia Liq) 30 ml Q12H PRN PO 05/01/17 01:15 (Senokot) 17.2 mg Q12H PRN PO 05/01/17 01:15 (Dulcolax Supp) 10 mg DAILY PRN RECTAL 05/01/17 01:15 (Lactulose Liq) 30 ml DAILY PRN PO 05/01/17 01:15 (Norvasc) 10 mg DAILY PO 05/01/17 09:00 05/07/17 08:42 (Aspirin) 325 mg DAILY PO 05/01/17 09:00 05/07/17 08:42 (Plavix) 75 mg DAILY PO 05/01/17 09:00 05/07/17 08:42 (Glucotrol) 5 mg BIDAC PO 05/01/17 07:00 05/07/17 17:05 (Prinivil) 5 mg DAILY PO 05/01/17 09:00 05/07/17 08:42 (Pravachol) 40 mg HS PO 05/01/17 21:00 05/06/17 20:49 (Ambien) 5 mg HS PRN PO 05/03/17 10:30 (NS Flush) 2 ml BID IV FLUSH 05/04/17 21:00 05/06/17 20:50 (NS Flush) 2 ml UNSCH PRN IV FLUSH 05/04/17 14:00 05/04/17 21:31 (Imdur) 60 mg DAILY@07 PO 05/05/17 07:00 05/07/17 07:32 (Heparin Inj) 5,000 units Q12HR SQ 05/05/17 21:00 05/07/17 08:42 (Coreg) 12.5 mg Q12HR PO 05/06/17 21:00 05/07/17 08:41 Vital Signs / I&O Vital Signs Date Time Temp Pulse Resp B/P (MAP) Pulse Ox O2 Delivery O2 Flow Rate FiO2 05/07/17 12:44 97.5 65 16 112/59 (76) 96 05/07/17 08:30 98.5 67 16 119/69 (86) 97 05/07/17 05:16 98.4 66 114/67 (83) 97 05/07/17 04:01 64 05/07/17 00:18 98.6 69 16 116/57 (76) 100 05/07/17 00:06 71 05/06/17 20:41 98.0 72 18 115/65 (82) 97 05/06/17 20:23 70 05/06/17 17:58 97.8 68 14 125/68 (87) 97 I/O 05/06/17 05/06/17 05/06/17 05/07/17 05/07/17 05/07/17 07:00 15:00 23:00 07:00 15:00 23:00 Intake Total 240 ml 600 ml 625 ml Output Total 240 ml Balance 0 ml 600 ml 625 ml Intake Oral 240 ml 600 ml 625 ml Output Urine Total 240 ml # Voids 3 2 # Bowel Movements 2 Physical Exam GENERAL: SKIN: Warm and dry. HEAD: Normocephalic. EYES: No scleral icterus. No injection or drainage. NECK: Supple, trachea midline. No JVD or lymphadenopathy. CARDIOVASCULAR: Regular rate and rhythm without murmurs, gallops, or rubs. RESPIRATORY: Breath sounds equal bilaterally. No accessory muscle use. GASTROINTESTINAL: Abdomen soft, non-tender, nondistended. MUSCULOSKELETAL: No cyanosis, or edema. BACK: Nontender without obvious deformity. No CVA tenderness. Imaging GENERAL: SKIN: Warm and dry. HEAD: Normocephalic. EYES: No scleral icterus. No injection or drainage. NECK: Supple, trachea midline. No JVD or lymphadenopathy. CARDIOVASCULAR: Regular rate and rhythm without murmurs, gallops, or rubs. RESPIRATORY: Breath sounds equal bilaterally. No accessory muscle use. GASTROINTESTINAL: Abdomen soft, non-tender, nondistended. MUSCULOSKELETAL: No cyanosis, or edema. BACK: Nontender without obvious deformity. No CVA tenderness. Assessment and Plan Problem List: (1) CAD (coronary artery disease) ICD Codes: I25.10 - Atherosclerotic heart disease of [place] coronary artery without angina pectoris (2) Unstable angina ICD Codes: I20.0 - Unstable angina Status: Acute (3) HTN (hypertension) ICD Codes: I10 - Essential (primary) hypertension (4) DM (diabetes mellitus) ICD Codes: E11.9 - Type 2 diabetes mellitus without complications Assessment and Plan 1.) NSTEMI - severe 3 vessel cad, poor targets, progressive disease on pravastatin, intolerant of lipitor, 1/3 [facility] patent, ct surgery consult for eval of risks/benefits of redo cabg, if not candidate rec hospital to hospital transfer to [facility] for heart transplant evaluation; intermittent chest pain and duran on coreg 12.5 mg bid, imdur 60 mg qd, plavix, aspirin, pravachol, increase coreg 25 mg bid Lavon Cloud MD May 07, 2017 17:27
[2017-05-07] MEDS: PRAVASTATIN SOD 40 MG TAB PO SCH (21:37)
[2017-05-07] MEDS: SODIUM CHLORIDE 0.9% FLUSH 10 ML FLUSH IV FLUSH SCH (21:38)
[2017-05-07] MEDS: cefTRIAXone INJ 1,000 MG in SODIUM CHLORIDE 0.9% INJ 100 ML IV SCH (23:05)
[2017-05-08] VITALS (10 sets, daily range): BP systolic 111–140; BP diastolic 60–74; PULSE 60–71; RESP 16–18; TEMP 97.4–98.7; O2SAT 96–98
[2017-05-08] MEDS: glipiZIDE 5 MG TAB PO SCH ×2 (05:10→16:37)
[2017-05-08] MEDS: ISOSORBIDE MONONITRATE 60 MG TAB PO SCH (05:10)
[2017-05-08] MEDS: INSULIN ASPART SUPPLEMENTAL SCALE SQ SCH ×4 (08:00→21:00)
[2017-05-08] MEDS: LISINOPRIL 5 MG TAB PO SCH (08:12)
[2017-05-08] MEDS: DOCUSATE SODIUM 50 MG/SENNA 8.6 MG TAB PO SCH ×2 (08:12→21:19)
[2017-05-08] MEDS: ASPIRIN 325 MG TAB PO SCH (08:13)
[2017-05-08] MEDS: CLOPIDOGREL 75 MG TAB PO SCH (08:13)
[2017-05-08] MEDS: CARVEDILOL 12.5 MG TAB PO SCH ×2 (08:13→21:19)
[2017-05-08] MEDS: HEPARIN SODIUM - SQ 10,000 UNITS/ML VIAL SQ SCH ×2 (08:14→21:19)
[2017-05-08] MEDS: SODIUM CHLORIDE 0.9% FLUSH 10 ML FLUSH IV FLUSH SCH ×2 (08:14→21:22)
--- NOTE | 2017-05-08 12:17 | PD.CARD.PN ---
Subjective Subjective Remarks denies chest pain, dizziness, mild dyspnea ambulating halls Objective Medications Current Medications Medications (Trade) Dose Ordered Sig/Jenni Route Start Time Stop Time Status Last Admin Nitroglycerin/ Dextrose 250 ml @ 1.5 mls/hr TITRATE PRN IV 04/30/17 23:15 04/30/17 23:48 (D50w (Vial) Inj) 50 ml UNSCH PRN IV PUSH 05/01/17 01:15 (Glucagon Inj) 1 mg UNSCH PRN OTHER 05/01/17 01:15 (NovoLOG SUPPLEMENTAL SCALE) 1 ACHS SLIDING SCALE SQ 05/01/17 08:00 05/07/17 21:37 Ceftriaxone Sodium 1000 mg/ Sodium Chloride 100 ml @ 200 mls/hr Q24H IV 05/01/17 23:00 05/07/17 23:05 Azithromycin 500 mg/Sodium Chloride 250 ml @ 250 mls/hr Q24H IV 05/02/17 00:00 05/07/17 23:44 (Duoneb Neb) 1 ampule Q4HR NEB PRN NEB 05/01/17 01:15 (Nitroglycerin 2% Oint) 0.5 inch Q6HR PRN TOPICAL 05/01/17 01:15 (Zofran Inj) 4 mg Q6H PRN IVP 05/01/17 01:15 (Tylenol) 650 mg Q6H PRN PO 05/01/17 01:15 (Morphine Inj) 2 mg Q3H PRN IV PUSH 05/01/17 01:15 (Jackie-Colace) 1 tab BID PO 05/01/17 09:00 05/08/17 08:12 (Milk Of Magnesia Liq) 30 ml Q12H PRN PO 05/01/17 01:15 (Senokot) 17.2 mg Q12H PRN PO 05/01/17 01:15 (Dulcolax Supp) 10 mg DAILY PRN RECTAL 05/01/17 01:15 (Lactulose Liq) 30 ml DAILY PRN PO 05/01/17 01:15 (Norvasc) 10 mg DAILY PO 05/01/17 09:00 05/08/17 08:13 (Aspirin) 325 mg DAILY PO 05/01/17 09:00 05/08/17 08:13 (Plavix) 75 mg DAILY PO 05/01/17 09:00 05/08/17 08:13 (Glucotrol) 5 mg BIDAC PO 05/01/17 07:00 05/08/17 05:10 (Prinivil) 5 mg DAILY PO 05/01/17 09:00 05/08/17 08:12 (Pravachol) 40 mg HS PO 05/01/17 21:00 05/07/17 21:37 (Ambien) 5 mg HS PRN PO 05/03/17 10:30 (NS Flush) 2 ml BID IV FLUSH 05/04/17 21:00 05/08/17 08:14 (NS Flush) 2 ml UNSCH PRN IV FLUSH 05/04/17 14:00 05/04/17 21:31 (Imdur) 60 mg DAILY@07 PO 05/05/17 07:00 05/08/17 05:10 (Heparin Inj) 5,000 units Q12HR SQ 05/05/17 21:00 05/08/17 08:14 (Coreg) 12.5 mg Q12HR PO 05/07/17 21:00 05/08/17 08:13 Vital Signs / I&O Vital Signs Date Time Temp Pulse Resp B/P (MAP) Pulse Ox O2 Delivery O2 Flow Rate FiO2 05/08/17 08:03 97.8 67 16 121/65 (83) 96 05/08/17 05:07 98.1 66 18 111/62 (78) 98 05/08/17 04:03 60 05/08/17 00:14 69 05/08/17 00:00 97.9 71 16 125/69 (87) 96 05/07/17 20:23 72 05/07/17 19:40 98.2 73 18 123/67 (85) 97 05/07/17 17:21 97.4 64 16 127/68 (87) 95 05/07/17 12:44 97.5 65 16 112/59 (76) 96 I/O 05/07/17 05/07/17 05/07/17 05/08/17 05/08/17 05/08/17 07:00 15:00 23:00 07:00 15:00 23:00 Intake Total 625 ml 1860 ml 240 ml Balance 625 ml 1860 ml 240 ml Intake Oral 625 ml 1860 ml 240 ml # Voids 2 6 2 Physical Exam GENERAL: SKIN: Warm and dry. HEAD: Normocephalic. EYES: No scleral icterus. No injection or drainage. NECK: Supple, trachea midline. No JVD or lymphadenopathy. CARDIOVASCULAR: Regular rate and rhythm without murmurs, gallops, or rubs. RESPIRATORY: Breath sounds equal bilaterally. No accessory muscle use. GASTROINTESTINAL: Abdomen soft, non-tender, nondistended. MUSCULOSKELETAL: No cyanosis, or edema. BACK: Nontender without obvious deformity. No CVA tenderness. Assessment and Plan Problem List: (1) CAD (coronary artery disease) ICD Codes: I25.10 - Atherosclerotic heart disease of [place] coronary artery without angina pectoris (2) Unstable angina ICD Codes: I20.0 - Unstable angina Status: Acute (3) HTN (hypertension) ICD Codes: I10 - Essential (primary) hypertension (4) DM (diabetes mellitus) ICD Codes: E11.9 - Type 2 diabetes mellitus without complications Assessment and Plan 1.) NSTEMI - severe 3 vessel cad, poor targets, progressive disease on pravastatin, intolerant of lipitor, 1/3 [facility] patent, ct surgery consult for eval of risks/benefits of redo cabg, if not candidate rec hospital to hospital transfer to [facility] for heart transplant evaluation; intermittent chest pain and duran on coreg 12.5 mg bid, imdur 60 mg qd, plavix, aspirin, pravachol, f/u case management @ transfer options for heart transplant work up Lavon Cloud MD May 08, 2017 12:17
--- NOTE | 2017-05-08 17:50 | HHI.PR ---
Subjective Remarks Patient is doing well, requests Crestor, but that is not on formulary here. He denies any chest pain. Objective Vitals Vital Signs Date Time Temp Pulse Resp B/P (MAP) Pulse Ox O2 Delivery O2 Flow Rate FiO2 05/08/17 16:38 97.4 70 16 111/60 (77) 96 05/08/17 12:25 98.0 67 16 131/74 (93) 97 05/08/17 08:03 97.8 67 16 121/65 (83) 96 05/08/17 05:07 98.1 66 18 111/62 (78) 98 05/08/17 04:03 60 05/08/17 00:14 69 05/08/17 00:00 97.9 71 16 125/69 (87) 96 05/07/17 20:23 72 05/07/17 19:40 98.2 73 18 123/67 (85) 97 I/O 05/07/17 05/07/17 05/07/17 05/08/17 05/08/17 05/08/17 07:00 15:00 23:00 07:00 15:00 23:00 Intake Total 625 ml 1860 ml 240 ml Balance 625 ml 1860 ml 240 ml Intake Oral 625 ml 1860 ml 240 ml # Voids 2 6 2 Result Diagram: 05/05/17 0331 05/05/17 0331 Objective Remarks GENERAL: Well-nourished, well-developed patient. SKIN: Warm and dry. HEAD: Normocephalic. EYES: No scleral icterus. No injection or drainage. NECK: Supple, trachea midline. No JVD or lymphadenopathy. CARDIOVASCULAR: Regular rate and rhythm without murmurs, gallops, or rubs. RESPIRATORY: Breath sounds equal bilaterally. No accessory muscle use. GASTROINTESTINAL: Abdomen soft, non-tender, nondistended. MUSCULOSKELETAL: No cyanosis, or edema. BACK: Nontender without obvious deformity. No CVA tenderness. EXTREMITIES: no edema A/P Problem List: (1) Chest pain ICD Code: R07.9 - Chest pain, unspecified (2) HTN (hypertension) ICD Code: I10 - Essential (primary) hypertension (3) PNA (pneumonia) ICD Code: J18.9 - Pneumonia, unspecified organism (4) DM (diabetes mellitus) ICD Code: E11.9 - Type 2 diabetes mellitus without complications Assessment and Plan NSTEMI & Abnormal Vessel Disease Elevated Troponin without EKG changes Cath showed abnormal narrowing of many coronary arteries [facility] vs. [facility] for follow up to get on Heart Transplant list Awaiting final determination from cardiothoracic surgeon regarding repeat CABG option Hyperlipidemia Patient requests crestor to help clear his vessels from plaques, but crestor is not available here We discussed the value of a plant-based diet in addition to cholesterol meds He can be written for Crestor as a script upon discharge Pneumonia "Vague infiltrates" on CXR, no WBC change, no fever, no cough Empiric coverage with Rocephin and Azithromycin until discharged Type 2 Diabetes Sliding scale insulin coverage with accuchecks Diabetic Diet DVT Prophylaxis Nicanorx Gab Mohr MD May 08, 2017 17:50
[2017-05-08] MEDS: PRAVASTATIN SOD 40 MG TAB PO SCH (21:19)
[2017-05-08] MEDS: SODIUM CHLORIDE 0.9% FLUSH 10 ML FLUSH IV FLUSH PRN (23:10)
[2017-05-08] MEDS: cefTRIAXone INJ 1,000 MG in SODIUM CHLORIDE 0.9% INJ 100 ML IV SCH (23:10)
[2017-05-09] VITALS (9 sets, daily range): BP systolic 108–177; BP diastolic 60–88; PULSE 64–90; RESP 16–18; TEMP 98–98.9; O2SAT 95–98
[2017-05-09] MEDS: AZITHROMYCIN INJ 500 MG in SODIUM CHLOR 0.9% 250 ML INJ 250 ML IV SCH (00:05)
[2017-05-09] MEDS: ISOSORBIDE MONONITRATE 60 MG TAB PO SCH (07:02)
[2017-05-09] MEDS: glipiZIDE 5 MG TAB PO SCH ×2 (07:02→18:24)
--- NOTE | 2017-05-09 07:24 | PD.CAR.PN ---
CVT Progress Note Subjective/Hospital Course: Lengthy discussion with the patient and family. Given his underlying insurance, he will not be able to be evaluated by for heart failure/transplant. He will need to be [facility] by [facility]. Case management to make arrangements. Will sign off. Please call if I can be of any further assistance. Objective: Vital Signs Date Time Temp Pulse Resp B/P (MAP) Pulse Ox O2 Delivery O2 Flow Rate FiO2 05/09/17 04:10 68 05/09/17 04:10 98.0 65 16 108/60 (76) 97 05/09/17 00:10 72 05/08/17 23:13 98.2 66 16 140/72 (94) 97 05/08/17 20:22 98.7 61 16 116/66 (83) 97 05/08/17 20:03 63 05/08/17 16:38 97.4 70 16 111/60 (77) 96 05/08/17 12:25 98.0 67 16 131/74 (93) 97 05/08/17 08:03 97.8 67 16 121/65 (83) 96 Result Diagram: 05/05/17 0331 05/05/17 0331 (1) CAD (coronary artery disease) (2) Unstable angina (3) HTN (hypertension) (4) DM (diabetes mellitus) Rosie Zavaleta MD May 09, 2017 07:24
[2017-05-09] MEDS: INSULIN ASPART SUPPLEMENTAL SCALE SQ SCH ×4 (08:00→20:24)
[2017-05-09] MEDS: HEPARIN SODIUM - SQ 10,000 UNITS/ML VIAL SQ SCH ×2 (08:44→20:38)
[2017-05-09] MEDS: LISINOPRIL 5 MG TAB PO SCH (08:44)
[2017-05-09] MEDS: DOCUSATE SODIUM 50 MG/SENNA 8.6 MG TAB PO SCH ×2 (08:44→20:25)
[2017-05-09] MEDS: CLOPIDOGREL 75 MG TAB PO SCH (08:44)
[2017-05-09] MEDS: ASPIRIN 325 MG TAB PO SCH (08:45)
[2017-05-09] MEDS: CARVEDILOL 12.5 MG TAB PO SCH ×2 (08:45→20:25)
[2017-05-09] MEDS: SODIUM CHLORIDE 0.9% FLUSH 10 ML FLUSH IV FLUSH SCH ×2 (09:00→20:33)
[2017-05-09 15:15] LABS: CHOLESTEROL/ HDL RATIO 3.47 RATIO; HDL CHOLESTEROL 39.7 MG/DL (40.0-60.0)
--- NOTE | 2017-05-09 15:17 | PD.CARD.PN ---
Subjective Subjective Remarks denies chest pain, dizziness, mild dyspnea ambulating halls Objective Medications Current Medications Medications (Trade) Dose Ordered Sig/Jenni Route Start Time Stop Time Status Last Admin Nitroglycerin/ Dextrose 250 ml @ 1.5 mls/hr TITRATE PRN IV 04/30/17 23:15 04/30/17 23:48 (D50w (Vial) Inj) 50 ml UNSCH PRN IV PUSH 05/01/17 01:15 (Glucagon Inj) 1 mg UNSCH PRN OTHER 05/01/17 01:15 (NovoLOG SUPPLEMENTAL SCALE) 1 ACHS SLIDING SCALE SQ 05/01/17 08:00 05/08/17 12:26 Ceftriaxone Sodium 1000 mg/ Sodium Chloride 100 ml @ 200 mls/hr Q24H IV 05/01/17 23:00 05/08/17 23:10 Azithromycin 500 mg/Sodium Chloride 250 ml @ 250 mls/hr Q24H IV 05/02/17 00:00 05/09/17 00:05 (Duoneb Neb) 1 ampule Q4HR NEB PRN NEB 05/01/17 01:15 (Nitroglycerin 2% Oint) 0.5 inch Q6HR PRN TOPICAL 05/01/17 01:15 (Zofran Inj) 4 mg Q6H PRN IVP 05/01/17 01:15 (Tylenol) 650 mg Q6H PRN PO 05/01/17 01:15 (Morphine Inj) 2 mg Q3H PRN IV PUSH 05/01/17 01:15 (Jackie-Colace) 1 tab BID PO 05/01/17 09:00 05/09/17 08:44 (Milk Of Magnesia Liq) 30 ml Q12H PRN PO 05/01/17 01:15 (Senokot) 17.2 mg Q12H PRN PO 05/01/17 01:15 (Dulcolax Supp) 10 mg DAILY PRN RECTAL 05/01/17 01:15 (Lactulose Liq) 30 ml DAILY PRN PO 05/01/17 01:15 (Norvasc) 10 mg DAILY PO 05/01/17 09:00 05/09/17 08:45 (Aspirin) 325 mg DAILY PO 05/01/17 09:00 05/09/17 08:45 (Plavix) 75 mg DAILY PO 05/01/17 09:00 05/09/17 08:44 (Glucotrol) 5 mg BIDAC PO 05/01/17 07:00 05/09/17 07:02 (Prinivil) 5 mg DAILY PO 05/01/17 09:00 05/09/17 08:44 (Pravachol) 40 mg HS PO 05/01/17 21:00 05/08/17 21:19 (Ambien) 5 mg HS PRN PO 05/03/17 10:30 (NS Flush) 2 ml BID IV FLUSH 05/04/17 21:00 05/09/17 09:00 (NS Flush) 2 ml UNSCH PRN IV FLUSH 05/04/17 14:00 05/08/17 23:10 (Imdur) 60 mg DAILY@07 PO 05/05/17 07:00 05/09/17 07:02 (Heparin Inj) 5,000 units Q12HR SQ 05/05/17 21:00 05/09/17 08:44 (Coreg) 12.5 mg Q12HR PO 05/07/17 21:00 05/09/17 08:45 Vital Signs / I&O Vital Signs Date Time Temp Pulse Resp B/P (MAP) Pulse Ox O2 Delivery O2 Flow Rate FiO2 05/09/17 08:00 98.8 64 16 132/66 (88) 97 05/09/17 04:10 68 05/09/17 04:10 98.0 65 16 108/60 (76) 97 05/09/17 00:10 72 05/08/17 23:13 98.2 66 16 140/72 (94) 97 05/08/17 20:22 98.7 61 16 116/66 (83) 97 05/08/17 20:03 63 05/08/17 16:38 97.4 70 16 111/60 (77) 96 I/O 05/08/17 05/08/17 05/08/17 05/09/17 05/09/17 05/09/17 07:00 15:00 23:00 07:00 15:00 23:00 Intake Total 240 ml 1680 ml 605 ml Balance 240 ml 1680 ml 605 ml Intake Oral 240 ml 1680 ml 240 ml IV Total 365 ml # Voids 2 4 4 # Bowel Movements 1 Physical Exam GENERAL: SKIN: Warm and dry. HEAD: Normocephalic. EYES: No scleral icterus. No injection or drainage. NECK: Supple, trachea midline. No JVD or lymphadenopathy. CARDIOVASCULAR: Regular rate and rhythm without murmurs, gallops, or rubs. RESPIRATORY: Breath sounds equal bilaterally. No accessory muscle use. GASTROINTESTINAL: Abdomen soft, non-tender, nondistended. MUSCULOSKELETAL: No cyanosis, or edema. BACK: Nontender without obvious deformity. No CVA tenderness. Laboratory Laboratory Tests Test 05/09/17 14:19 Triglycerides Level 157 MG/DL Cholesterol Level 138 MG/DL LDL Cholesterol 67 MG/DL HDL Cholesterol 39.7 MG/DL Cholesterol/HDL Ratio 3.47 RATIO Assessment and Plan Problem List: (1) CAD (coronary artery disease) ICD Codes: I25.10 - Atherosclerotic heart disease of [place] coronary artery without angina pectoris (2) Unstable angina ICD Codes: I20.0 - Unstable angina Status: Acute (3) HTN (hypertension) ICD Codes: I10 - Essential (primary) hypertension (4) DM (diabetes mellitus) ICD Codes: E11.9 - Type 2 diabetes mellitus without complications Assessment and Plan 1.) NSTEMI - severe 3 vessel cad, poor targets, progressive disease on pravastatin, intolerant of lipitor, 1/ [facility] patent, ct surgery consult for eval of risks/benefits of redo cabg, if not candidate rec hospital to hospital transfer to [facility] for heart transplant evaluation; intermittent chest pain and duran on coreg 12.5 mg bid, imdur 60 mg qd, plavix, aspirin, pravachol, f/u case management @ transfer options for heart transplant work up Lavon Cloud MD May 09, 2017 15:17
[2017-05-09] MEDS: PRAVASTATIN SOD 40 MG TAB PO SCH (20:25)
[2017-05-09] MEDS: cefTRIAXone INJ 1,000 MG in SODIUM CHLORIDE 0.9% INJ 100 ML IV SCH (23:32)
--- NOTE | 2017-05-09 23:40 | HHI.PR ---
Subjective Remarks Patient seen today around noon. Denies any chest pain or shortness of breath. Says he feels all right. Objective Vital Signs Date Time Temp Pulse Resp B/P (MAP) Pulse Ox O2 Delivery O2 Flow Rate FiO2 05/09/17 20:17 69 05/09/17 20:15 98.1 69 16 114/65 (81) 96 05/09/17 19:34 98.5 69 16 120/67 (84) 95 05/09/17 12:00 98.5 66 16 110/72 (85) 98 05/09/17 08:00 98.8 64 16 132/66 (88) 97 05/09/17 04:10 68 05/09/17 04:10 98.0 65 16 108/60 (76) 97 05/09/17 00:10 72 I/O 05/09/17 05/09/17 05/09/17 05/10/17 05/10/17 05/10/17 07:00 15:00 23:00 07:00 15:00 23:00 Intake Total 605 ml Balance 605 ml Intake Oral 240 ml IV Total 365 ml # Voids 4 # Bowel Movements 1 Result Diagram: 05/05/17 0331 05/05/17 0331 Objective Remarks GENERAL: patient sitting up in bed. Appears comfortable. SKIN: Warm and dry. HEAD: Normocephalic. EYES: No scleral icterus. No injection or drainage. NECK: Supple, trachea midline. No JVD. CARDIOVASCULAR: Regular rate and rhythm without murmurs, gallops, or rubs. RESPIRATORY: Breath sounds equal bilaterally. No accessory muscle use. GASTROINTESTINAL: Abdomen soft, non-tender, nondistended. MUSCULOSKELETAL: No cyanosis, or edema. BACK: Nontender without obvious deformity. No CVA tenderness. A/P Assessment and Plan //NSTEMI and Abnormal Vessel Disease Elevated Troponin without EKG changes Cath showed abnormal narrowing of many coronary arteries [facility] vs. [facility] for follow up to get on Heart Transplant list Awaiting final determination from cardiothoracic surgeon regarding repeat CABG option = Cardiovascular surgery has signed off. Patient will need evaluation at tertiary care center, discussed again with case management. Working on referral to [place]. //Hyperlipidemia Patient requests crestor to help clear his vessels from plaques, but crestor is not available here We discussed the value of a plant-based diet in addition to cholesterol meds He can be written for [facility] as a script upon discharge //Pneumonia "Vague infiltrates" on CXR, no WBC change, no fever, no cough Empiric coverage with Rocephin and Azithromycin until discharged //Type 2 Diabetes Sliding scale insulin coverage with accuchecks Diabetic Diet //DVT Prophylaxis Lovenox Discharge Planning discussed with case management. Working on referral. Vinod Abdul MD May 09, 2017 23:40
[2017-05-10 00:01] VITALS: PULSE 69
[2017-05-10 00:14] VITALS: RESP 16
[2017-05-10] MEDS: AZITHROMYCIN INJ 500 MG in SODIUM CHLOR 0.9% 250 ML INJ 250 ML IV SCH (00:26)
[2017-05-10 03:51] VITALS: BP 115/60; PULSE 66; RESP 16; TEMP 98.1; O2SAT 98
[2017-05-10 04:09] VITALS: PULSE 63
[2017-05-10] MEDS: glipiZIDE 5 MG TAB PO SCH ×2 (06:57→16:00)
[2017-05-10] MEDS: ISOSORBIDE MONONITRATE 60 MG TAB PO SCH (06:57)
[2017-05-10 08:00] VITALS: BP 129/72; PULSE 68; RESP 16; TEMP 98.6; O2SAT 96
[2017-05-10] MEDS: INSULIN ASPART SUPPLEMENTAL SCALE SQ SCH ×3 (08:00→17:00)
[2017-05-10] MEDS: DOCUSATE SODIUM 50 MG/SENNA 8.6 MG TAB PO SCH (09:01)
[2017-05-10] MEDS: CARVEDILOL 12.5 MG TAB PO SCH (09:01)
[2017-05-10] MEDS: LISINOPRIL 5 MG TAB PO SCH (09:01)
[2017-05-10] MEDS: HEPARIN SODIUM - SQ 10,000 UNITS/ML VIAL SQ SCH (09:01)
[2017-05-10] MEDS: ASPIRIN 325 MG TAB PO SCH (09:02)
[2017-05-10] MEDS: SODIUM CHLORIDE 0.9% FLUSH 10 ML FLUSH IV FLUSH SCH (09:02)
[2017-05-10] MEDS: CLOPIDOGREL 75 MG TAB PO SCH (09:02)
[2017-05-10 12:00] VITALS: BP 126/63; PULSE 68; RESP 16; TEMP 98.8; O2SAT 97
--- NOTE | 2017-05-10 14:47 | PD.CARD.PN ---
Subjective Subjective Remarks denies chest pain, dizziness, mild dyspnea ambulating halls Objective Medications Current Medications Medications (Trade) Dose Ordered Sig/Jenni Route Start Time Stop Time Status Last Admin Nitroglycerin/ Dextrose 250 ml @ 1.5 mls/hr TITRATE PRN IV 04/30/17 23:15 04/30/17 23:48 (D50w (Vial) Inj) 50 ml UNSCH PRN IV PUSH 05/01/17 01:15 (Glucagon Inj) 1 mg UNSCH PRN OTHER 05/01/17 01:15 (NovoLOG SUPPLEMENTAL SCALE) 1 ACHS SLIDING SCALE SQ 05/01/17 08:00 05/09/17 20:24 Ceftriaxone Sodium 1000 mg/ Sodium Chloride 100 ml @ 200 mls/hr Q24H IV 05/01/17 23:00 05/09/17 23:32 Azithromycin 500 mg/Sodium Chloride 250 ml @ 250 mls/hr Q24H IV 05/02/17 00:00 05/10/17 00:26 (Duoneb Neb) 1 ampule Q4HR NEB PRN NEB 05/01/17 01:15 (Nitroglycerin 2% Oint) 0.5 inch Q6HR PRN TOPICAL 05/01/17 01:15 (Zofran Inj) 4 mg Q6H PRN IVP 05/01/17 01:15 (Tylenol) 650 mg Q6H PRN PO 05/01/17 01:15 (Morphine Inj) 2 mg Q3H PRN IV PUSH 05/01/17 01:15 (Jackie-Colace) 1 tab BID PO 05/01/17 09:00 05/10/17 09:01 (Milk Of Magnesia Liq) 30 ml Q12H PRN PO 05/01/17 01:15 (Senokot) 17.2 mg Q12H PRN PO 05/01/17 01:15 (Dulcolax Supp) 10 mg DAILY PRN RECTAL 05/01/17 01:15 (Lactulose Liq) 30 ml DAILY PRN PO 05/01/17 01:15 (Norvasc) 10 mg DAILY PO 05/01/17 09:00 05/10/17 09:01 (Aspirin) 325 mg DAILY PO 05/01/17 09:00 05/10/17 09:02 (Plavix) 75 mg DAILY PO 05/01/17 09:00 05/10/17 09:02 (Glucotrol) 5 mg BIDAC PO 05/01/17 07:00 05/10/17 06:57 (Prinivil) 5 mg DAILY PO 05/01/17 09:00 05/10/17 09:01 (Pravachol) 40 mg HS PO 05/01/17 21:00 05/09/17 20:25 (Ambien) 5 mg HS PRN PO 05/03/17 10:30 (NS Flush) 2 ml BID IV FLUSH 05/04/17 21:00 05/10/17 09:02 (NS Flush) 2 ml UNSCH PRN IV FLUSH 05/04/17 14:00 05/08/17 23:10 (Imdur) 60 mg DAILY@07 PO 05/05/17 07:00 05/10/17 06:57 (Heparin Inj) 5,000 units Q12HR SQ 05/05/17 21:00 05/10/17 09:01 (Coreg) 12.5 mg Q12HR PO 05/07/17 21:00 05/10/17 09:01 Vital Signs / I&O Vital Signs Date Time Temp Pulse Resp B/P (MAP) Pulse Ox O2 Delivery O2 Flow Rate FiO2 05/10/17 12:00 98.8 68 16 126/63 (84) 97 05/10/17 08:00 98.6 68 16 129/72 (91) 96 05/10/17 04:09 63 05/10/17 03:51 98.1 66 16 115/60 (78) 98 05/10/17 00:14 16 05/10/17 00:01 69 05/09/17 23:37 98.7 67 18 111/67 (82) 96 05/09/17 20:17 69 05/09/17 20:15 98.1 69 16 114/65 (81) 96 05/09/17 19:34 98.5 69 16 120/67 (84) 95 I/O 05/09/17 05/09/17 05/09/17 05/10/17 05/10/17 05/10/17 06:59 14:59 22:59 06:59 14:59 22:59 Intake Total 605 ml 370 ml Balance 605 ml 370 ml Intake Oral 240 ml IV Total 365 ml 370 ml # Voids 4 # Bowel Movements 1 Physical Exam GENERAL: SKIN: Warm and dry. HEAD: Normocephalic. EYES: No scleral icterus. No injection or drainage. NECK: Supple, trachea midline. No JVD or lymphadenopathy. CARDIOVASCULAR: Regular rate and rhythm without murmurs, gallops, or rubs. RESPIRATORY: Breath sounds equal bilaterally. No accessory muscle use. GASTROINTESTINAL: Abdomen soft, non-tender, nondistended. MUSCULOSKELETAL: No cyanosis, or edema. BACK: Nontender without obvious deformity. No CVA tenderness. Assessment and Plan Problem List: (1) CAD (coronary artery disease) ICD Codes: I25.10 - Atherosclerotic heart disease of [place] coronary artery without angina pectoris (2) Unstable angina ICD Codes: I20.0 - Unstable angina Status: Acute (3) HTN (hypertension) ICD Codes: I10 - Essential (primary) hypertension (4) DM (diabetes mellitus) ICD Codes: E11.9 - Type 2 diabetes mellitus without complications Assessment and Plan 1.) NSTEMI - severe 3 vessel cad, poor targets, progressive disease on pravastatin, intolerant of lipitor, 1/3 garfts patent, ct surgery consult for eval of risks/benefits of redo cabg, if not candidate rec hospital to hospital transfer to [facility] for heart transplant evaluation; intermittent chest pain and duran on coreg 12.5 mg bid, imdur 60 mg qd, plavix, aspirin, pravachol, f/u case management @ transfer options for heart transplant work up Lavon Cloud MD May 10, 2017 14:47
[2017-05-10] MEDS ORDERED: CARV12.5 PO (16:36)
[2017-05-10] MEDS ORDERED: ISOS60TA PO (16:36)
--- NOTE | 2017-05-10 18:39 | HHI.PR ---
Subjective Remarks Patient says he is feeling well. Denies any chest pain or shortness of breath While in the room, case management walks in to provide appointment at [facility] for transplant evaluation. Objective Vital Signs Date Time Temp Pulse Resp B/P (MAP) Pulse Ox O2 Delivery O2 Flow Rate FiO2 05/10/17 12:00 98.8 68 16 126/63 (84) 97 05/10/17 08:00 98.6 68 16 129/72 (91) 96 05/10/17 04:09 63 05/10/17 03:51 98.1 66 16 115/60 (78) 98 05/10/17 00:14 16 05/10/17 00:01 69 05/09/17 23:37 98.7 67 18 111/67 (82) 96 05/09/17 20:17 69 05/09/17 20:15 98.1 69 16 114/65 (81) 96 05/09/17 19:34 98.5 69 16 120/67 (84) 95 I/O 05/09/17 05/09/17 05/09/17 05/10/17 05/10/17 05/10/17 07:00 15:00 23:00 07:00 15:00 23:00 Intake Total 605 ml 370 ml Balance 605 ml 370 ml Intake Oral 240 ml IV Total 365 ml 370 ml # Voids 4 # Bowel Movements 1 Objective Remarks GENERAL: patient sitting up in bed. Appears comfortable. Alert and oriented 3. SKIN: Warm and dry. HEAD: Normocephalic. EYES: No scleral icterus. No injection or drainage. NECK: Supple, trachea midline. No JVD. CARDIOVASCULAR: Regular rate and rhythm without murmurs, gallops, or rubs. RESPIRATORY: Breath sounds equal bilaterally. No accessory muscle use. GASTROINTESTINAL: Abdomen soft, non-tender, nondistended. MUSCULOSKELETAL: No cyanosis, or edema. BACK: Nontender without obvious deformity. No CVA tenderness. A/P Assessment and Plan //NSTEMI and Abnormal Vessel Disease Elevated Troponin without EKG changes Cath showed abnormal narrowing of many coronary arteries [facility] vs. [facility] for follow up to get on Heart Transplant list Awaiting final determination from cardiothoracic surgeon regarding repeat CABG option = Cardiovascular surgery has signed off. Patient will need evaluation at tertiary care center, discussed again with case management. Working on referral to [place]. = Patient received referral to [facility] in [place] for transplant evaluation. Appreciate case management assistance. Continue current condition regimen. //Hyperlipidemia Patient requests crestor to help clear his vessels from plaques, but crestor is not available here We discussed the value of a plant-based diet in addition to cholesterol meds = Patient reports poor compliance previously. Has stressed compliance. We'll need to follow-up with primary care to follow levels. //Pneumonia "Vague infiltrates" on CXR, no WBC change, no fever, no cough Empiric coverage with Rocephin and Azithromycin until discharged = Patient has received 10 day course of antibiotics. //Type 2 Diabetes Sliding scale insulin coverage with accuchecks Diabetic Diet = Glucose has been well controlled here on only glipizide, diabetic diet. Patient will restart metformin twice daily at home as well. We discussed dietary interventions, patient will adhere to strict diabetic diet. //DVT Prophylaxis Lovenox Discharge Planning Discharge home. Follow-up with primary care, appointment has been made for May 25 at [facility] transplant clinic. Appreciate case management assistance. Vinod Abdul MD May 10, 2017 18:39
--- NOTE | 2017-05-10 18:40 | HHI.DS ---
Discharge Summary Admission Date May 04, 2017 at 13:52 Discharge Date: May 10, 2017 Admitting Diagnosis Unstable angina, LLL pneumonia, hyperglycemia (1) Chest pain ICD Code: R07.9 - Chest pain, unspecified (2) HTN (hypertension) ICD Code: I10 - Essential (primary) hypertension (3) PNA (pneumonia) ICD Code: J18.9 - Pneumonia, unspecified organism (4) DM (diabetes mellitus) ICD Code: E11.9 - Type 2 diabetes mellitus without complications Procedures cardiac catheterization pertinent findings "FINDINGS The LV pressure is 130/8-10. The ejection fraction is 60%. The right coronary artery is dominant. It is occluded in the proximal segment. The SVG to right coronary artery is occluded in the proximal segment. The SVG to the OM is occluded at the os. The JAMA to the LAD is widely patent. There is 30% ostial proximal stenosis but the vessel is probably at 3.5 mm reference vessel diameter. It supplies a small LAD and diagonal which are probably 1.5 to 2 mm diameter vessels angiographically. There appears to be possibly diffuse disease versus normal vessel tapering in the mid-LAD, estimate the stenosis at possibly 40-50%. The diagonal vessel is filled retrograde from the JAMA insertion site and has what appears to be an ostial 30-40% stenosis. It bifurcates proximally with the medial branch having a 70% stenosis. The left main coronary artery has mild disease up to 20% angiographically. LAD is occluded at the first septal director talent vessel. First diagonal artery has a sequential proximally 50s followed by a 70% stenosis, it is a 2.5 mm reference vessel diameter. The left circumflex vessel has subtotal occlusion in the proximal segment. The AV groove left circumflex vessel then fills and supplies two small obtuse marginal vessels, probably 1 mm in diameter and then three small posterolateral artery is 0.5 mm in diameter. There are grade 3 to 4 collaterals to the right TITO and right PDA. Right TITO and PDA appear to be 0.5 to 1 mm reference vessel diameter with no obviously significant stenotic areas. CONCLUSION 1. Severe three-vessel coronary artery disease in a right-dominant system as detailed above. 2. One of three grafts patent. 3. Preserved LV systolic function, EF 60%. 4. Euvolemic by LV pressures (130/8-10). 5. Non-STEMI. Suspect ischemia is occurring in the collateralized segment of the right TITO, PDA. 6. I do not think the vein graft to the right is acutely occluded as a troponin peak was approximately 1 and it is now declining and LV function appears to be preserved. 7. Recommend optimization of medical therapy. The patient unfortunately has not tolerated Lipitor in the past and has only been able to tolerate Pravachol. It appears that there is not much more medical adjustment that can be done and therefore, I do think the patient should be referred to [facility] for evaluation for risks and benefits of heart transplant and to be put on the list. I have explained this to the patient, he understands. 8. Advised the patient to hold his Glucophage/metformin for 48-hours postprocedure." Brief History - From Admission This is a 62-year-old male with PMH of HTN, CAD s/p CABG, Hyperlipidemia and DM who presented to the ER w/ complaints of chest pain starting few hours prior to arrival. Pain is constant, severe, 9/10, pressure-like w/ radiation to left neck. Reports associated SOB. Previous h/o similar symptoms w/ prior [facility]. S/p NTG w/ significant relief. Follows w/ Dr. Cloud as outpatient, last Stress approx 1yr ago normal per his report. On arrival, BP 174/70, HR 101, O2 sat 96 % on 3L NC, Afebrile. CBC unremarkable. Chemistry essentially unremarkable except for BS 419. Troponin 0.04. INR 1.0. CXR with left base pneumonia. S/ p Rocephin/Zithro and started on Heparin gtt in ER. Currently chest pain free. Significant Findings Laboratory Tests Test 05/09/17 14:19 Triglycerides Level 157 MG/DL (42-150) HDL Cholesterol 39.7 MG/DL (40.0-60.0) Imaging Last Impressions Chest X-Ray 04/30/17 6440 Signed Impressions: Service Date/Time: Sunday, April 30, 2017 23:22 - CONCLUSION: Left base pneumonia in the proper clinical setting. Followup 2 view chest x-ray recommended in a few weeks to confirm resolution. Nicho Burroughs MD PE at Discharge GENERAL: laying in bed EYES: No scleral icterus. No injection or drainage. NECK: trachea midline CARDIOVASCULAR: Regular rate and rhythm without murmurs RESPIRATORY: Breath sounds equal bilaterally. No accessory muscle use. GASTROINTESTINAL: Abdomen soft, non-tender, nondistended. MUSCULOSKELETAL: No edema. moving extremities. Hospital Course Patient presented with elevated troponin up to 1.65, with nonspecific ST changes. Chest x-ray did show possible pneumonia as above, fourth patient received 10 day course of antibiotics. Cardiology was consulted due to NSTEMI, and patient underwent cardiac catheterization with severe 3 vessel CAD, however echocardiogram shows ejection fraction 45-50%. Cardiovascular surgery was consult to due to severe nature of CAD, and recommended referral to tertiary center for heart failure/transplant evaluation. Blood pressure was found to be somewhat elevated during admission, and blood pressure medications were adjusted. An appointment was made with [facility] for transplant evaluation. For problem-based summary from most recent progress note, please see below. //NSTEMI and Abnormal Vessel Disease Elevated Troponin without EKG changes Cath showed abnormal narrowing of many coronary arteries [facility] vs. [facility] for follow up to get on Heart Transplant list Awaiting final determination from cardiothoracic surgeon regarding repeat CABG option = Cardiovascular surgery has signed off. Patient will need evaluation at tertiary care center, discussed again with case management. Working on referral to [place]. = Patient received referral to [facility] in [place] for transplant evaluation. Appreciate case management assistance. Continue current condition regimen. //Hyperlipidemia Patient requests crestor to help clear his vessels from plaques, but crestor is not available here We discussed the value of a plant-based diet in addition to cholesterol meds = Patient reports poor compliance previously. Has stressed compliance. We'll need to follow-up with primary care to follow levels. //Pneumonia "Vague infiltrates" on CXR, no WBC change, no fever, no cough Empiric coverage with Rocephin and Azithromycin until discharged = Patient has received 10 day course of antibiotics. //Type 2 Diabetes Sliding scale insulin coverage with accuchecks Diabetic Diet = Glucose has been well controlled here on only glipizide, diabetic diet. Patient will restart metformin twice daily at home as well. We discussed dietary interventions, patient will adhere to strict diabetic diet. //DVT Prophylaxis Lovenox Discharge Planning Discharge home. Follow-up with primary care, appointment has been made for May 25 at [facility] transplant clinic. Appreciate case management assistance. Discharge Planning Discharge home. Follow-up with primary care, appointment has been made for May 25 at [facility] transplant clinic. Appreciate case management assistance. Pt Condition on Discharge: Good Discharge Disposition: Discharge Home Discharge Time: > 30 minutes Discharge Instructions DIET: Follow Instructions for: Diabetic Diet Activities you can perform: Regular-No Restrictions Follow up Referrals: Cardiology @ [facility] PCP Follow-up - 1 Week with Joe Merritt MD New Medications: Carvedilol (Coreg) 12.5 Mg Tab 12.5 MG PO Q12HR for heart for 30 Days, TAB Isosorbide Mononitrate ER (Isosorbide Mononitrate ER) 60 Mg Tab 60 MG PO DAILY@07 for heart for 30 Days, TAB Continued Medications: Amlodipine (Amlodipine) 10 Mg Tab 10 MG PO DAILY for Blood Pressure Management, #30 TAB 0 Refills Aspirin (Aspirin) 325 Mg Tab 325 MG PO DAILY, #30 TAB 0 Refills Clopidogrel (Clopidogrel) 75 Mg Tab 75 MG PO DAILY for Blood Clot Prevention, #30 TAB 0 Refills Glipizide (Glipizide) 5 Mg Tab 5 MG PO BIDAC for Blood Sugar Management, #60 TAB 0 Refills Take 30 minutes before a meal Lisinopril (Lisinopril) 5 Mg Tab 5 MG PO DAILY for Blood Pressure Management, #30 TAB 0 Refills Metformin (Metformin) 500 Mg Tab 500 MG PO BIDPC for Blood Sugar Management, #60 TAB 0 Refills Pravastatin (Pravastatin) 40 Mg Tab 40 MG PO HS for Cholesterol Management, #30 TAB 0 Refills Discontinued Medications: Carvedilol (Carvedilol) 3.125 Mg Tab 3.125 MG PO BID, #60 TAB 0 Refills Isosorbide Mononitrate ER (Isosorbide Mononitrate ER) 30 Mg Leslie 30 MG PO DAILY for Prevent Chest Pain, #30 TAB 0 Refills Vinod Abdul MD May 10, 2017 18:40
== END 2017-05-10 19:19 | disposition home or self-care (01) | DRG 280 ==
LOC: NEPE 22:51 → NEDA 05-01 01:10 → HCIN 05-01 04:23 → OBSVTOIN 05-04 13:52
PROVIDERS: ADMIT Hospitalist; ATTEND Hospitalist
PROC: B2111ZZ Fluoroscopy of Multiple Coronary Arteries using Low Osmolar Contrast (ICD-10-PCS; 2017-05-04)
PROC: B2151ZZ Fluoroscopy of Left Heart using Low Osmolar Contrast (ICD-10-PCS; 2017-05-04)
PROC: B2181ZZ Fluoroscopy of Left Internal Mammary Bypass Graft using Low Osmolar Contrast (ICD-10-PCS; 2017-05-04)
PROC: B2131ZZ Fluoroscopy of Multiple Coronary Artery Bypass Grafts using Low Osmolar Contrast (ICD-10-PCS; 2017-05-04)
PROC: 4A023N7 Measurement of Cardiac Sampling and Pressure, Left Heart, Percutaneous Approach (ICD-10-PCS; principal; 2017-05-04 12:30)
DX: I21.4 Non-ST elevation (NSTEMI) myocardial infarction (principal); J18.9 Pneumonia, unspecified organism; E11.65 Type 2 diabetes mellitus with hyperglycemia; I25.810 Atherosclerosis of coronary artery bypass graft(s) without angina pectoris; I25.10 Atherosclerotic heart disease of native coronary artery without angina pectoris; I10 Essential (primary) hypertension; I25.2 Old myocardial infarction; K21.9 Gastro-esophageal reflux disease without esophagitis; E78.5 Hyperlipidemia, unspecified; R00.0 Tachycardia, unspecified; Z79.84 Long term (current) use of oral hypoglycemic drugs; Z87.891 Personal history of nicotine dependence; Z88.5 Allergy status to narcotic agent; Z95.5 Presence of coronary angioplasty implant and graft
CPT/HCPCS: 71010; 80048; 80053; 80061; 82550; 82552; 82948; 83690; 83735; 83880; 84484; 85025; 85610; 85730; 87040; 93005; 93306; 93459; 94150; 96365; 96366; 96372; 99152; 99153; C1769; C1893; G0378; J0456; J0696; J1644; J1650; J1815; J2250; J7030; J7050; Q9967

== ENCOUNTER 2017-08-11 11:38 | Emergency (ER) | payer MEDICARE ==
[~2017-08-11] VITALS: Ht 165.1 cm; Wt 77.0 kg
[~2017-08-11 11:38] MED LIST changes: +AMLO10TA2 PO; +ASPI-183 PO; -ASPI81TA82 PO; -BENZ100 PO; +CARV12.5 PO; +CLOP75TA PO; -CORE3.12 PO; -GLIM4TAB PO; +GLIP5TAB8 PO; -GLUCTAB PO; +ISOS60TA PO; +LISI-519 PO; +METF500T PO; -PLAV75TA OR; +PRAV40TA2 PO; -PRIN5TAB PO; -ROSU40 PO
[2017-08-11 12:07] VITALS: BP 123/58; PULSE 62; RESP 17; TEMP 98.1; O2SAT 98
[2017-08-11 14:15] LABS: BASOPHIL # 0.1 TH/MM3 (0-0.2); BASOPHIL % 0.9 % (0.0-2.0); EOSINOPHIL # 0.3 TH/MM3 (0-0.4); EOSINOPHIL % 3.9 % (0.0-4.0); HEMATOCRIT 37.7 % (39.0-51.0); HEMOGLOBIN 12.3 GM/DL (13.0-17.0); LYMPH % 30.2 % (9.0-44.0); LYMPHOCYTE # 2.1 TH/MM3 (1.0-4.8); MEAN CELL VOLUME 83.7 FL (80.0-100.0); MEAN CORPUSCULAR HEMOGLOBIN 27.2 PG (27.0-34.0); MEAN CORPUSCULAR HGB CONC 32.5 % (32.0-36.0); MEAN PLATELET VOLUME 8.6 FL (7.0-11.0); MONO % 8.6 % (0.0-8.0); MONOCYTE # 0.6 TH/MM3 (0-0.9); NEUT % 56.4 % (16.0-70.0); PLATELET COUNT 198 TH/MM3 (150-450); RED BLOOD COUNT 4.51 MIL/MM3 (4.50-5.90); RED CELL DISTRIBUTION WIDTH 16.4 % (11.6-17.2); WHITE BLOOD COUNT 7.1 TH/MM3 (4.0-11.0)
[2017-08-11 14:28] LABS: ALBUMIN 4.3 GM/DL (3.4-5.0); AST (GOT) 23 U/L (15-37); BICARBONATE 25.5 MEQ/L (21.0-32.0); BLOOD UREA NITROGEN 23 MG/DL (7-18); CALCIUM 10.1 MG/DL (8.5-10.1); CHLORIDE 110 MEQ/L (98-107); CREATININE 1.06 MG/DL (0.60-1.30); GLOMERULAR FILTRATION RATE 71 ML/MIN (>89); GLUCOSE,RANDOM 84 MG/DL (74-106); SODIUM (NA) 141 MEQ/L (136-145)
[2017-08-11 14:30] LABS: ALT (GPT) 27 U/L (12-78)
[2017-08-11 14:31] LABS: ALKALINE PHOSPHATASE 59 U/L (45-117); TOTAL BILIRUBIN ADULT 0.2 MG/DL (0.2-1.0); TOTAL PROTEIN 8.4 GM/DL (6.4-8.2)
[2017-08-11 17:01] VITALS: BP 152/72; PULSE 60; RESP 16; O2SAT 100
[2017-08-11] MEDS ORDERED: SPIR25TA PO (17:36)
[2017-08-11] MEDS ORDERED: CARV25TA (17:36)
[2017-08-11] MEDS ORDERED: ROSU1TAB8 PO (17:36)
--- NOTE | 2017-08-11 18:07 | PD ---
HPI Chief Complaint: Abnormal Results Time Seen by Provider: 17:17 Travel History International Travel<30 days: No Contact w/Intl Traveler<30days: No Traveled to known affect area: No History of Present Illness HPI This patient had an outpatient blood draw this morning. He received a call that his potassium was 6.6 and he should come to the emergency room. 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 The patient is asymptomatic and feels fine. He has no current symptoms at all. So severity is mild. Duration one day. Today' s blood draw was a routine draw. He does not take any testing supplementation or potassium sparing diuretics. He does take 5 mg of daily lisinopril. No alleviating factors. No exacerbating factors. PFSH Past Medical History Hx Anticoagulant Therapy: Yes Arthritis: No Asthma: No Blood Disorders: No Heart Rhythm Problems: No Cancer: No Cardiac Catheterization: Yes Cardiovascular Problems: Yes High Cholesterol: Yes Chemotherapy: No Chest Pain: Yes Congestive Heart Failure: No Cirrhosis: No COPD: No Cerebrovascular Accident: No Diabetes: Yes Patient Takes Glucophage: Yes (08/11/17 1030) Diminished Hearing: No Endocrine: Yes GERD: Yes Genitourinary: No Headaches: Yes Hepatitis: No Hiatal Hernia: No Hypertension: Yes Immune Disorder: No Musculoskeletal: Yes Neurologic: No Psychiatric: No Respiratory: No Myocardial Infarction: Yes Radiation Therapy: No Seizures: No Sickle Cell Disease: No Sleep Apnea: No Thyroid Disease: No Ulcer: No ?: Not Past Surgical History Abdominal Surgery: Yes (Hernia repair) AICD: No Appendectomy: Yes Cardiac Surgery: Yes (CABG X 4) Coronary Artery Bypass Graft: Yes Coronary Stent: Yes Ear Surgery: No Endocrine Surgery: No Eye Surgery: No Genitourinary Surgery: No Gynecologic Surgery: No Joint Replacement: No Oral Surgery: No Pacemaker: No Thoracic Surgery: No Other Surgery: Yes Family History Family Myocardial Infarction: Yes Social History Alcohol Use: No Tobacco Use: No Substance Use: No Allergies-Medications (Allergen,Severity, Reaction): Coded Allergies: atorvastatin (Unverified Allergy, Severe, MUSCLE ACHES, 08/11/17) oxycodone (Unverified Allergy, Mild, 08/11/17) Reported Meds & Prescriptions Reported Meds & Active Scripts Active Isosorbide Mononitrate ER (Isosorbide Mononitrate) 60 Mg Tab 60 Mg PO DAILY@07 30 Days Reported Spironolactone 25 Mg Tab 12.5 Mg PO DAILY Rosuvastatin (Rosuvastatin Calcium) 20 Mg Tab 20 Mg PO DAILY Carvedilol 25 Mg Tab 25 Mg BID Aspirin 325 Mg Tab 325 Mg PO DAILY Clopidogrel (Clopidogrel Bisulfate) 75 Mg Tab 75 Mg PO DAILY Glipizide 5 Mg Tab 5 Mg PO BIDAC Take 30 minutes before a meal Metformin (Metformin HCl) 500 Mg Tab 500 Mg PO BIDPC Review of Systems General / Constitutional: No: Fever Eyes: No: Visual changes HENT: No: Headaches Cardiovascular: No: Chest Pain or Discomfort Respiratory: No: Shortness of Breath Gastrointestinal: No: Abdominal Pain Genitourinary: No: Dysuria Musculoskeletal: No: Pain Skin: No Rash Neurologic: No: Weakness Psychiatric: No: Depression Endocrine: No: Polydipsia Hematologic/Lymphatic: No: Easy Bruising Physical Exam Narrative GENERAL: Well-nourished, well-developed patient in no apparent distress. SKIN: Focused skin assessment reveals no rash and nodules. Skin is Warm and dry. HEAD: Atraumatic. Normocephalic. EYES: Pupils equal and round. No scleral icterus. No injection or drainage. ENT: No nasal bleeding or discharge. Mucous membranes pink and moist. NECK: Trachea midline. No JVD. CARDIOVASCULAR: Regular rate and rhythm. No murmur appreciated. RESPIRATORY: No accessory muscle use. Clear to auscultation. Breath sounds equal bilaterally. GASTROINTESTINAL: Abdomen soft, non-tender, nondistended. Hepatic and splenic margins not palpable. MUSCULOSKELETAL: No obvious deformities. No clubbing. No cyanosis. No edema. NEUROLOGICAL: Awake and alert. No obvious cranial nerve deficits. Motor grossly within normal limits. Normal speech. PSYCHIATRIC: Appropriate mood and affect; insight and judgment normal. Data Data Last Documented VS Vital Signs Date Time Temp Pulse Resp B/P (MAP) Pulse Ox O2 Delivery O2 Flow Rate FiO2 08/11/17 17:01 60 16 152/72 (98) 100 Room Air 08/11/17 12:07 98.1 Orders Orders Comprehensive Metabolic Panel (08/11/17 12:11) Complete Blood Count With Diff (08/11/17 12:11) Magnesium (Mg) (08/11/17 12:11) Labs Laboratory Tests Test 08/11/17 13:20 White Blood Count 7.1 TH/MM3 Red Blood Count 4.51 MIL/MM3 Hemoglobin 12.3 GM/DL Hematocrit 37.7 % Mean Corpuscular Volume 83.7 FL Mean Corpuscular Hemoglobin 27.2 PG Mean Corpuscular Hemoglobin Concent 32.5 % Red Cell Distribution Width 16.4 % Platelet Count 198 TH/MM3 Mean Platelet Volume 8.6 FL Neutrophils (%) (Auto) 56.4 % Lymphocytes (%) (Auto) 30.2 % Monocytes (%) (Auto) 8.6 % Eosinophils (%) (Auto) 3.9 % Basophils (%) (Auto) 0.9 % Neutrophils # (Auto) 4.0 TH/MM3 Lymphocytes # (Auto) 2.1 TH/MM3 Monocytes # (Auto) 0.6 TH/MM3 Eosinophils # (Auto) 0.3 TH/MM3 Basophils # (Auto) 0.1 TH/MM3 CBC Comment DIFF FINAL Differential Comment Blood Urea Nitrogen 23 MG/DL Creatinine 1.06 MG/DL Random Glucose 84 MG/DL Total Protein 8.4 GM/DL Albumin 4.3 GM/DL Calcium Level 10.1 MG/DL Alkaline Phosphatase 59 U/L Aspartate Amino Transf (AST/SGOT) 23 U/L Alanine Aminotransferase (ALT/SGPT) 27 U/L Total Bilirubin 0.2 MG/DL Sodium Level 141 MEQ/L Potassium Level 4.8 MEQ/L Chloride Level 110 MEQ/L Carbon Dioxide Level 25.5 MEQ/L Anion Gap 6 MEQ/L Estimat Glomerular Filtration Rate 71 ML/MIN MDM Medical Decision Making Medical Screen Exam Complete: Yes Emergency Medical Condition: Yes Medical Record Reviewed: Yes Differential Diagnosis Hyperkalemia, laboratory error, medication side effect Narrative Course I have reviewed the patient's electronic medical record. Reviewed his discharge summary from last month We obtained fresh blood work at this visit CBC reasonably normal Metabolic studies normal. Potassium is 4.8 We discussed holding first continuing his DOUG inhibitor. It is a very low dose. Since his level is 4.8 and went to have him continue for now but discuss it with his physician. Diagnosis Primary Impression: Acute hyperkalemia Additional Impression: CAD (coronary artery disease) Qualified Codes: I25.10 - Atherosclerotic heart disease of [place] coronary artery without angina pectoris; I25.84 - Coronary atherosclerosis due to calcified coronary lesion Additional Instructions: The patient was advised to follow up with their physician and return if they worsen. Discuss continuing versus discontinuing lisinopril with your physician Med/Other Pt SpecificInfo: Other Disposition: 01 DISCHARGE HOME Condition: Serious Pato Cutler MD Aug 11, 2017 18:07
== END 2017-08-11 18:30 | disposition home or self-care (01) ==
LOC: NEPD 11:38
DX: E87.5 Hyperkalemia (principal); I25.10 Atherosclerotic heart disease of native coronary artery without angina pectoris; I25.84 Coronary atherosclerosis due to calcified coronary lesion; E11.9 Type 2 diabetes mellitus without complications; E78.00 Pure hypercholesterolemia, unspecified; I10 Essential (primary) hypertension; Z79.84 Long term (current) use of oral hypoglycemic drugs
CPT/HCPCS: 80053; 83735; 85025; 99283